=== PATIENT | male | born 1955 | race Caucasian/White ===

== ENCOUNTER 2018-07-09 08:00 | Outpatient (RCR) | payer MEDICAID, SELFPAY | END 2018-07-09 08:05 | disposition home or self-care (01) | LOC: PT 08:00 | PROVIDERS: Visit Provider Orthopaedic Surgery Adult Reconstructive Orthopaedic Surgery | DX: M54.5 Low back pain (principal); M51.36 Other intervertebral disc degeneration, lumbar region | CPT/HCPCS: 97010; 97012; 97014; 97110; 97163; G0283 ==

== ENCOUNTER → 2018-08-25 13:23 | Outpatient (CLI) | payer MEDICAID, SELFPAY ==
[2018-08-25 18:55] LABS: Amphetamine/Metha Screen,Urine Negative ng/mL (<1000); Barbiturates Screen,Urine Negative ng/mL (<200); Benzodiazepines Screen,Urine Negative ng/mL (<200); Cannabinoid Screen,Urine Negative ng/mL (<50); Cocaine Screen,Urine Negative ng/mL (<300); Methadone Screen,Urine Negative ng/mL (<300); Opiate Screen,Urine Negative ng/mL (<300); Phencyclidine Screen,Urine Negative ng/mL (<25)
[2018-08-27 12:34] LABS: Microalbumin, Urine 21.6 ug/mL (Not Estab.)
== END ==
PROVIDERS: Visit Provider Nurse Practitioner Family
DX: E10.9 Type 1 diabetes mellitus without complications (principal); Z79.899 Other long term (current) drug therapy
CPT/HCPCS: 80305; 82043

== ENCOUNTER → 2018-08-30 12:30 | Outpatient (CLI) | payer MEDICAID, SELFPAY ==
--- NOTE | 2018-08-30 12:34 | CA_ITS ---
PROCEDURE: 2-D M-mode and color Doppler study INDICATIONS FOR THE TEST: Chest pain + COPD Heart Murmur Tobacco Smokingex Palpitations Fatigue Syncope Edema Hypertension+Diabetes Mellitus+ Rheumatic Fever SOB+NORRIS Obesity Hyperlipidemia+ Family History HD Additional History abn ekg, pre-op,rbbb PATIENT INFORMATION HEIGHT:70 WEIGHT:271 GENDER: Male B/P:117/69 2-D/M-MODE INTERPRETATION: 2-D MEASUREMENTS OBSERVED VALUES IN CMS Right Ventricular Dimension (RVDd) 2.9 Interventricular Septum (Thickness)(IVsd) 0.8 Left Ventricular Internal Dimensions(LVIDd) 5.9 Left Ventricular Posterior Wall (Thickness)(LVPWd) 0.7 Aortic Root 3.7 Aortic Cusp Separation 2.5 Left Atrial Dimensions (LAD) 3.9 2D 1. Left atrium is mildly enlarged, left ventricle is normal size, there is mild concentric left ventricular hypertrophy, visually estimated ejection fraction of 55% with no regional wall motion abnormality. 2. The right atrium and right ventricle are mildly enlarged with normal contractility. 3. The aortic valve is thickened and gastritis leaflet continue to display mobility. 4. The mitral and tricuspid valve leaflets are minimally thickened 5. The pulmonic valve is poorly visualized. 6. No significant pericardial effusion noted. DOPPLER INTERROGATION: Doppler interrogation of the aortic, mitral and tricuspid valvular presence of mild mitral and tricuspid regurgitation, tricuspid regurgitation jet velocity is inadequate for calculation of the right ventricular systolic pressure, grade 1 diastolic dysfunction seen without tissue Doppler evidence of raised left atrial pressure. CONCLUSION: 1. Mildly enlarged left atrium, normal left ventricular size, mild concentric left ventricular hypertrophy, visually estimated ejection fraction of 55% with no regional wall motion abnormality, grade 1 diastolic dysfunction seen without tissue Doppler evidence of raised left atrial pressure. 2. Mildly enlarged right atrium and right ventricle, contractility of the right ventricle is normal. 3. Mild mitral and tricuspid regurgitation 4. No significant pericardial effusion noted.
== END ==
PROVIDERS: PCP Nurse Practitioner Family; Visit Provider Internal Medicine Cardiovascular Disease
DX: Z01.818 Encounter for other preprocedural examination (principal); R07.9 Chest pain, unspecified; R06.09 Other forms of dyspnea; E10.8 Type 1 diabetes mellitus with unspecified complications; E78.5 Hyperlipidemia, unspecified; I10 Essential (primary) hypertension; K21.9 Gastro-esophageal reflux disease without esophagitis
CPT/HCPCS: 93306

== ENCOUNTER → 2018-08-31 12:12 | Outpatient (CLI) | payer MEDICAID, SELFPAY ==
--- NOTE | 2018-08-31 12:13 | NM_ITS ---
CARDIOLITE SPECT MYOCARDIAL PERFUSION SCAN, REST AND STRESS: EXERCISE STRESS [facility] REVIEW QGS EF AND WALL MOTION EVALUATION: QPS - PERFUSION EVALUATION HISTORY: cp..soa..fatique DOSE: 10.01 mCi technetium 99m mibi intravenously at rest followed by 32.6 mCi technetium 99m mibi following the intravenous ministration of 0.4 mg of Lexiscan. Resting blood pressure is 106/65. Stress blood pressure 103/59. FINDINGS: Ejection fraction is calculated to be 53%. SPECT images reveal decreased activity in the inferior apical wall while rest images reveal uniform myocardial activity. Gated images calculated ejection fraction of 53% with apical hypokinesis IMPRESSION: Reversible ischemia throughout the inferior and apical wall accompanied by regional wall motion abnormality with normal ejection fraction. This is a high-risk abnormal stress test
--- NOTE | 2018-08-31 12:19 | CT_ITS ---
CT chest wo con HISTORY: Chest pain, dyspnea, previous smoker ITS.REASON: ex smoker, dyspnea ORDERING PHYSICIAN: Pedro Dickens MD PATIENT AGE: 62 years COMPARISON: None Technique: Axial images obtained without contrast. Sagittal, and coronal reformatted images are also generated and reviewed. All CT scans at the facility use one or more dose reduction, viz: automated exposure control, ma/kV adjustment per patient size (including targeted exams where dose is matched to indication, i.e. head), or iterative reconstruction technique. FINDINGS: There are scattered small mediastinal nodes measuring up to 1.7 x 1 cm in the precarinal area. Some of the nodes are calcified. Coronary artery calcifications are present. There is minimal thickening of the pericardium anteriorly measuring up to 1 cm. No evidence of aortic aneurysm No lobar consolidation or collapse. There is a calcified granuloma within the left upper lobe. No suspicious pulmonary nodules. No central obstructing lesions. No acute bony findings. Upper abdominal images are unremarkable. There are mild degenerative changes in the thoracic spine. IMPRESSION: 1. No acute findings. 2. Coronary artery calcifications with mild pericardial thickening suggesting small pericardial effusion
--- NOTE | 2018-08-31 14:03 | HMH.ITSHM ---
Current Home Medications as stated by this patient Manuel Christian or phone representative. TAMSULOSIN SITAGLIPTIN ROPINIROLE OMEPRAZOLE NABUMETONE METFORMIN LISINOPRIL INSULIN GLIPIZIDE GABAPENTIN CYCLOBENZAPRINE CANAGLIFLOZIN ATORVASTATIN
== END ==
PROVIDERS: PCP Nurse Practitioner Family; Visit Provider Internal Medicine Cardiovascular Disease
DX: Z01.818 Encounter for other preprocedural examination (principal); R07.9 Chest pain, unspecified; R06.09 Other forms of dyspnea; E10.8 Type 1 diabetes mellitus with unspecified complications; E78.5 Hyperlipidemia, unspecified; I10 Essential (primary) hypertension; K21.9 Gastro-esophageal reflux disease without esophagitis
CPT/HCPCS: 71250; 78452; 93017; A9502; J2785

== ENCOUNTER → 2018-09-27 10:45 | Outpatient (CLI) | payer MEDICAID, SELFPAY | PROVIDERS: PCP Emergency Medicine; Visit Provider Internal Medicine Cardiovascular Disease | DX: G47.9 Sleep disorder, unspecified; R06.83 Snoring; R40.0 Somnolence; E10.8 Type 1 diabetes mellitus with unspecified complications; R06.09 Other forms of dyspnea; G47.33 Obstructive sleep apnea (adult) (pediatric) | CPT/HCPCS: G0399 ==

== ENCOUNTER 2018-09-29 08:18 | Outpatient (RCR) | payer MEDICAID, SELFPAY | END 2018-11-01 12:51 | disposition home or self-care (01) | LOC: PT 08:18 | PROVIDERS: Visit Provider Internal Medicine | DX: Z95.5 Presence of coronary angioplasty implant and graft (principal) | CPT/HCPCS: 93798 ==

== ENCOUNTER → 2018-12-24 06:14 | Outpatient (CLI) | payer OTHER, SELFPAY ==
--- NOTE | 2018-12-24 06:17 | NM_ITS ---
CARDIOLITE SPECT MYOCARDIAL PERFUSION LEXISCAN, REST AND STRESS: History: Coronary artery disease, hypertension, diabetes, hyperlipidemia, tobacco use, family history, chest pain, shortness of breath Procedure: Patient received a 0.4 mg of intravenous Lexiscan, resting heart rate was 66 bpm resting blood pressure 119/78, with Lexiscan maximum heart rate achieved was 73 bpm which is less than 85% of the maximum predicted heart rate and a blood pressure was 109/66. With Lexiscan patient complained of chest pressure. Electrocardiogram: Resting electrocardiogram showed sinus rhythm right bundle branch block, with Lexiscan there is less than 1.[address] segment depression noted from the baseline EKG. The EKG portion of the Lexiscan Myoview is nondiagnostic. Cardiac stress and resting SPECT images: Cardiac stress and resting SPECT images were obtained using technetium 99 Myoview 32.4 mCi at stress and 10.9 mCi at rest. Gated SPECT further analysis of segmental wall motion and calculation of the ejection fraction also done. Cardiac stress and resting SPECT images show a fixed defect involving the inferior and inferior apical wall with reduced contractility in likely secondary to nontransmural myocardial infarction, no significant maryjane-infarct ischemia seen. Computer Derived ejection fraction is 58% with moderate inferior wall hypokinesis. Conclusion: 1. The EKG portion of the Lexiscan Myoview is nondiagnostic. 2. Scintigraphic evidence of nontransmural myocardial scarring involving the inferior and inferior apical wall, with no scintigraphic evidence of reversible ischemia. Computer derived ejection fraction is 58% with moderate inferior wall hypokinesis, right ventricle is normal size and contractility. 3. Abnormal Lexiscan Myoview study.
--- NOTE | 2018-12-24 11:42 | HMH.ITSHM ---
Current Home Medications as stated by this patient Manuel Christian or solar manufacturer's representative. []tamsulosin cyclobenzaprine metformin omeprazole aspirin gabapentin glipizide atorvastatin bisoprolol lisinopril
== END ==
PROVIDERS: PCP Nurse Practitioner Family; Visit Provider Internal Medicine
DX: R07.9 Chest pain, unspecified (principal); R06.09 Other forms of dyspnea; R94.31 Abnormal electrocardiogram [ECG] [EKG]; E11.9 Type 2 diabetes mellitus without complications; I10 Essential (primary) hypertension; Z79.4 Long term (current) use of insulin
CPT/HCPCS: 78452; 93017; A9502; J2785

== ENCOUNTER → 2018-12-29 14:50 | Outpatient (CLI) | payer OTHER, SELFPAY ==
[2018-12-29 15:24] LABS: Basophils % 0.6 % (0.1-2.0); Eosinophils # 0.3 K/mm3 (0.0-0.4); Eosinophils % 3.9 % (0.1-12.0); Hematocrit 47.2 % (42.0-52.0); Hemoglobin 15.1 g/dL (14.1-18.0); Lymphocytes # 1.9 K/mm3 (0.7-4.5); Lymphocytes % 29.2 % (10-50); Mean Corpuscular Volume 87.5 fl (80-94); Monocytes # 0.3 K/mm3 (0.1-1.0); Monocytes % 4.5 % (1.7-9.3); Neutrophils # 4.1 K/mm3 (1.8-7.8); Neutrophils % 61.9 % (37.0-80.0); Platelet Count 279 K/mm3 (142-424); Red Cell Distribution Width 15.1 % (11.5-17.5); White Blood Count 6.6 K/mm3 (4.8-10.8)
[2018-12-29 15:44] LABS: Hemoglobin A1C 7.7 % (0.0-7.0)
[2018-12-29 15:52] LABS: Alanine Aminotransferase 58 U/L (12-78); Albumin Level 3.9 gm/dL (3.4-5.0); Albumin/Globulin Ratio 1.3 (1.1-1.8); Alkaline Phosphatase 65 U/L (46-116); Anion Gap 15.5 mEq/L (5-15); Aspartate Amino Transferase 29 U/L (15-37); Bilirubin,Total 0.7 mg/dL (0.2-1.0); Blood Urea Nitrogen 26 mg/dL (7-18); Calcium 8.6 mg/dL (8.5-10.1); Carbon Dioxide 23 mmol/L (21.0-32.0); Chloride 101 mmol/L (98-107); Cholesterol 103 mg/dL (140-200); Creatinine,Serum 1.34 mg/dL (0.70-1.30); Estimated Glomerular Filt Rate 54 ml/min (>60); GFR (African American) 65 ML/MIN (>60); Glucose 251 mg/dL (74-106); HDL Cholesterol 26 mg/dL (27-67); LDL Cholesterol 28 mg/dL (0-130); Phosphorous 3.9 mg/dL (2.4-4.9); Potassium 4.5 mmoL/L (3.5-5.1); Sodium 135 mmol/L (136-145); Thyroid Stimulating Hormone 1.71 uIU/ml (0.358-3.740); Total Protein,Serum 6.9 gm/dL (6.4-8.2); Triglycerides 244 mg/dL (30-200); VLDL Cholesterol 49 mg/dL (0-40)
[2019-01-02 03:30] LABS: C-Peptide 10.2 ng/mL (1.1-4.4); Thyroid Peroxidase Antibodies <6 IU/mL (0-34); Vitamin D 25 Hydroxy 18.1 ng/mL (30.0-100.0)
[2019-01-02 03:31] LABS: Microalbumin, Urine 23.2 ug/mL (Not Estab.)
== END ==
PROVIDERS: Visit Provider Nurse Practitioner Family
DX: E11.9 Type 2 diabetes mellitus without complications (principal); E78.5 Hyperlipidemia, unspecified; G25.81 Restless legs syndrome; R34 Anuria and oliguria; R53.83 Other fatigue; R68.89 Other general symptoms and signs; E03.9 Hypothyroidism, unspecified; D72.829 Elevated white blood cell count, unspecified; E55.9 Vitamin D deficiency, unspecified
CPT/HCPCS: 80053; 80061; 80069; 82043; 82652; 83036; 84439; 84443; 84681; 85025; 86376; G0103

== ENCOUNTER → 2019-05-10 14:04 | Outpatient (CLI) | payer OTHER, SELFPAY ==
[2019-05-10 14:55] LABS: Amphetamine/Metha Screen,Urine Negative ng/mL (<1000); Barbiturates Screen,Urine Negative ng/mL (<200); Benzodiazepines Screen,Urine Negative ng/mL (<200); Cannabinoid Screen,Urine Negative ng/mL (<50); Cocaine Screen,Urine Negative ng/mL (<300); Methadone Screen,Urine Negative ng/mL (<300); Opiate Screen,Urine Negative ng/mL (<300); Phencyclidine Screen,Urine Negative ng/mL (<25)
== END ==
PROVIDERS: Visit Provider Nurse Practitioner Family
DX: Z79.899 Other long term (current) drug therapy (principal)
CPT/HCPCS: 80305

== ENCOUNTER → 2019-07-06 13:28 | Outpatient (CLI) | payer SELFPAY ==
[2019-07-06 15:45] LABS: Amphetamine/Metha Screen,Urine Negative ng/mL (<1000); Barbiturates Screen,Urine Negative ng/mL (<200); Benzodiazepines Screen,Urine Negative ng/mL (<200); Cannabinoid Screen,Urine Negative ng/mL (<50); Cocaine Screen,Urine Negative ng/mL (<300); Methadone Screen,Urine Negative ng/mL (<300); Opiate Screen,Urine Negative ng/mL (<300); Phencyclidine Screen,Urine Negative ng/mL (<25)
== END ==
PROVIDERS: Visit Provider Nurse Practitioner Family
DX: Z79.899 Other long term (current) drug therapy (principal)
CPT/HCPCS: 80305

== ENCOUNTER → 2019-10-27 16:19 | Outpatient (CLI) | payer OTHER, SELFPAY ==
[2019-10-27 17:03] LABS: Hemoglobin A1C 9.2 % (4.0-6.0)
== END ==
PROVIDERS: Visit Provider Nurse Practitioner Family
DX: E11.9 Type 2 diabetes mellitus without complications (principal); Z79.4 Long term (current) use of insulin
CPT/HCPCS: 83036

== ENCOUNTER → 2020-01-11 11:33 | Outpatient (CLI) | payer OTHER, SELFPAY ==
[2020-01-11 11:57] LABS: Basophils # 0.1 K/mm3 (0-0.2); Basophils % 0.7 % (0.1-2.0); Eosinophils # 0.3 K/mm3 (0.0-0.4); Eosinophils % 3.9 % (0.1-12.0); Hematocrit 42.8 % (42.0-52.0); Hemoglobin 15.1 g/dL (14.1-18.0); Lymphocytes # 2.5 K/mm3 (0.7-4.5); Lymphocytes % 29.4 % (10-50); Mean Corpuscular HGB Conc 35.3 g/dL (31.8-35.4); Mean Corpuscular Hemoglobin 30.5 pg (27.0-31.2); Mean Corpuscular Volume 86.2 fl (80-94); Mean Platelet Volume 7.7 fl (7.4-10.4); Monocytes # 0.4 K/mm3 (0.1-1.0); Monocytes % 4.5 % (1.7-9.3); Neutrophils # 5.2 K/mm3 (1.8-7.8); Neutrophils % 61.6 % (37.0-80.0); Platelet Count 246 K/mm3 (142-424); Red Blood Count 4.97 M/mm3 (4.60-6.20); Red Cell Distribution Width 13.8 % (11.5-17.5); White Blood Count 8.5 K/mm3 (4.8-10.8)
[2020-01-11 12:22] LABS: Hemoglobin A1C 11.3 % (4.0-6.0)
[2020-01-11 12:24] LABS: Chloride 92 mmol/L (98-107); Potassium 4.3 mmoL/L (3.5-5.1); Sodium 135 mmol/L (136-145)
[2020-01-11 12:26] LABS: Bilirubin,Unconjugated 0.5 mg/dL (0.0-1.1); Blood Urea Nitrogen 19 mg/dl (9-20); Estimated Glomerular Filt Rate 75 ml/min (>60); GFR (African American) 91 ML/MIN (>60)
[2020-01-11 12:27] LABS: Alanine Aminotransferase 57 U/L (12-78); Albumin Level 4.5 g/dl (3.5-5.0); Alkaline Phosphatase 75 U/L (38-126); Anion Gap 18.3 mEq/L (5-15); Aspartate Amino Transferase 43 U/L (17-59); Bilirubin,Direct 0.3 mg/dl (0.0-0.4); Bilirubin,Indirect 0.5 mg/dL (0.0-0.9); Bilirubin,Total 0.8 mg/dl (0.2-1.3); Calcium 9.1 mg/dl (8.4-10.2); Carbon Dioxide 29 mmol/L (22.0-30.0); Chol/HDL Ratio 6.6 (1-3.5); Cholesterol 119 mg/dl (140-200); Glucose 295 mg/dl (74-100); HDL Cholesterol 18 mg/dl (40-60)
[2020-01-11 12:38] LABS: Direct LDL Cholesterol 34.29 mg/dL (100-129)
[2020-01-11 12:54] LABS: Triglycerides 566 mg/dl (30-150)
[2020-01-11 12:57] LABS: Prostate Specific Ag Screen 1.8 ng/ml (0.0-4.0)
== END ==
PROVIDERS: Visit Provider Physician Assistant
DX: R07.9 Chest pain, unspecified (principal); R06.09 Other forms of dyspnea; R94.31 Abnormal electrocardiogram [ECG] [EKG]; E10.8 Type 1 diabetes mellitus with unspecified complications; E11.9 Type 2 diabetes mellitus without complications; E78.2 Mixed hyperlipidemia; I10 Essential (primary) hypertension; I25.10 Atherosclerotic heart disease of native coronary artery without angina pectoris; K21.9 Gastro-esophageal reflux disease without esophagitis; G47.33 Obstructive sleep apnea (adult) (pediatric); Z87.891 Personal history of nicotine dependence; Z12.5 Encounter for screening for malignant neoplasm of prostate
CPT/HCPCS: 36415; 80048; 80061; 80076; 83036; 85025; G0103

== ENCOUNTER → 2020-01-26 17:00 | Outpatient (CLI) | payer OTHER, SELFPAY ==
[2020-01-26 19:34] LABS: Hemoglobin A1C 11.4 % (4.0-6.0)
[2020-01-26 23:23] LABS: Microalbumin < 6.000 mg/L (0-16.7)
== END ==
PROVIDERS: Visit Provider Nurse Practitioner Family
DX: E11.9 Type 2 diabetes mellitus without complications (principal); Z79.84 Long term (current) use of oral hypoglycemic drugs
CPT/HCPCS: 82043; 83036

== ENCOUNTER → 2020-05-30 16:50 | Outpatient (CLI) | payer MEDICAID, SELFPAY ==
[2020-05-30 19:01] LABS: Basophils # 0.1 K/mm3 (0-0.2); Basophils % 0.6 % (0.1-2.0); Eosinophils # 0.4 K/mm3 (0.0-0.4); Eosinophils % 4.9 % (0.1-12.0); Hematocrit 49.8 % (42.0-52.0); Hemoglobin 16.6 g/dL (14.1-18.0); Lymphocytes # 2.5 K/mm3 (0.7-4.5); Lymphocytes % 30.8 % (10-50); Mean Corpuscular HGB Conc 33.3 g/dL (31.8-35.4); Mean Corpuscular Hemoglobin 29.3 pg (27.0-31.2); Monocytes # 0.5 K/mm3 (0.1-1.0); Monocytes % 5.7 % (1.7-9.3); Neutrophils # 4.7 K/mm3 (1.8-7.8); Neutrophils % 57.9 % (37.0-80.0); Platelet Count 269 K/mm3 (142-424); Red Blood Count 5.66 M/mm3 (4.60-6.20); Red Cell Distribution Width 13.9 % (11.5-17.5)
[2020-05-30 19:19] LABS: Chloride 99 mmol/L (98-107)
[2020-05-30 19:20] LABS: Potassium 4.8 mmoL/L (3.5-5.1); Sodium 137 mmol/L (136-145)
[2020-05-30 19:22] LABS: Alanine Aminotransferase 55 U/L (12-78); Albumin Level 4.6 g/dl (3.5-5.0); Albumin/Globulin Ratio 1.7 (1.1-1.8); Alkaline Phosphatase 77 U/L (38-126); Anion Gap 14.8 mEq/L (5-15); Aspartate Amino Transferase 49 U/L (17-59); Bilirubin,Total 0.8 mg/dl (0.2-1.3); Blood Urea Nitrogen 13 mg/dl (9-20); Carbon Dioxide 28 mmol/L (22.0-30.0); Cholesterol 129 mg/dl (140-200); Estimated Glomerular Filt Rate 98 ml/min (>60); GFR (African American) 118 ML/MIN (>60); Globulin 2.7 g/dL (1.3-3.2); Total Protein,Serum 7.3 g/dl (6.3-8.2); Triglycerides 308 mg/dl (30-150); VLDL Cholesterol 62 mg/dL (0-40)
[2020-05-30 19:23] LABS: Calcium 9.6 mg/dl (8.4-10.2); Chol/HDL Ratio 5.9 (1-3.5); Glucose 217 mg/dl (74-100); HDL Cholesterol 22 mg/dl (40-60)
[2020-05-30 19:26] LABS: Hemoglobin A1C 9.8 % (4.0-6.0)
[2020-05-30 19:35] LABS: Direct LDL Cholesterol 57.62 mg/dL (100-129)
[2020-05-30 19:40] LABS: T4 (Thyroxine) 7.8 ug/dl (5.53-11.0)
[2020-05-30 19:54] LABS: Thyroid Stimulating Hormone 2.14 uIU/mL (0.465-4.68)
[2020-06-06 03:07] LABS: Testosterone, Total, LC/MS 273.9 ng/dL (264.0-916.0); Testosterone,Free 8.5 pg/mL (6.6-18.1)
== END ==
PROVIDERS: Visit Provider Nurse Practitioner Family
DX: E11.65 Type 2 diabetes mellitus with hyperglycemia (principal); G62.9 Polyneuropathy, unspecified
CPT/HCPCS: 80053; 80061; 83036; 84402; 84403; 84436; 84443; 85025

== ENCOUNTER → 2020-06-15 13:13 | Outpatient (CLI) | payer MEDICAID, SELFPAY ==
[2020-06-16 12:54] LABS: Testosterone,Total 256 ng/dL (264-916)
== END ==
PROVIDERS: Visit Provider Physician Assistant
DX: R53.83 Other fatigue (principal); R79.89 Other specified abnormal findings of blood chemistry
CPT/HCPCS: 84403

== ENCOUNTER → 2020-07-20 14:56 | Outpatient (CLI) | payer MEDICARE, OTHER, SELFPAY ==
[2020-07-20 17:18] VITALS: BMI 40.1
== END ==
PROVIDERS: PCP Nurse Practitioner Family; Visit Provider Urology
DX: Z71.3 Dietary counseling and surveillance (principal); E11.9 Type 2 diabetes mellitus without complications
CPT/HCPCS: 97802

== ENCOUNTER → 2020-08-29 09:21 | Outpatient (CLI) | payer MEDICARE, OTHER, SELFPAY ==
[2020-08-29 10:17] LABS: Chloride 99 mmol/L (98-107); Potassium 4.4 mmoL/L (3.5-5.1); Sodium 137 mmol/L (136-145)
[2020-08-29 10:20] LABS: Anion Gap 15.4 mEq/L (5-15); Blood Urea Nitrogen 22 mg/dl (9-20); Calcium 9.7 mg/dl (8.4-10.2); Carbon Dioxide 27 mmol/L (22.0-30.0); Estimated Glomerular Filt Rate 68 ml/min (>60); GFR (African American) 82 ML/MIN (>60); Glucose 273 mg/dl (74-100)
== END ==
PROVIDERS: Visit Provider Nurse Practitioner Family
DX: E10.8 Type 1 diabetes mellitus with unspecified complications (principal); E78.2 Mixed hyperlipidemia; I10 Essential (primary) hypertension; I25.10 Atherosclerotic heart disease of native coronary artery without angina pectoris; K21.9 Gastro-esophageal reflux disease without esophagitis; R06.09 Other forms of dyspnea; Z79.4 Long term (current) use of insulin
CPT/HCPCS: 36415; 80048

== ENCOUNTER → 2020-11-22 17:23 | Outpatient (CLI) | payer MEDICARE, OTHER, SELFPAY ==
[2020-11-22 17:52] LABS: Basophils # 0.1 K/mm3 (0-0.2); Basophils % 0.7 % (0.1-2.0); Eosinophils # 0.3 K/mm3 (0.0-0.4); Eosinophils % 3.3 % (0.1-12.0); Hematocrit 47.8 % (42.0-52.0); Hemoglobin 16.3 g/dL (14.1-18.0); Lymphocytes # 2.8 K/mm3 (0.7-4.5); Mean Corpuscular Hemoglobin 29.2 pg (27.0-31.2); Mean Corpuscular Volume 85.7 fl (80-94); Mean Platelet Volume 7.8 fl (7.4-10.4); Monocytes # 0.6 K/mm3 (0.1-1.0); Monocytes % 6.2 % (1.7-9.3); Neutrophils # 5.3 K/mm3 (1.8-7.8); Neutrophils % 58.8 % (37.0-80.0); Platelet Count 265 K/mm3 (142-424); Red Blood Count 5.57 M/mm3 (4.60-6.20); Red Cell Distribution Width 13.8 % (11.5-17.5); White Blood Count 9.1 K/mm3 (4.8-10.8)
[2020-11-22 17:57] LABS: Alanine Aminotransferase 53 U/L (12-78); Albumin Level 4.9 g/dl (3.5-5.0); Albumin/Globulin Ratio 1.9 (1.1-1.8); Alkaline Phosphatase 79 U/L (38-126); Anion Gap 18.6 mEq/L (5-15); Aspartate Amino Transferase 39 U/L (17-59); Bilirubin,Total 0.7 mg/dl (0.2-1.3); Blood Urea Nitrogen 24 mg/dl (9-20); Calcium 9.9 mg/dl (8.4-10.2); Carbon Dioxide 24 mmol/L (22.0-30.0); Chloride 99 mmol/L (98-107); Cholesterol 131 mg/dl (140-200); Estimated Glomerular Filt Rate 56 ml/min (>60); GFR (African American) 67 ML/MIN (>60); Globulin 2.6 g/dL (1.3-3.2); Glucose 168 mg/dl (74-100); HDL Cholesterol 22 mg/dl (40-60); Potassium 4.6 mmoL/L (3.5-5.1); Sodium 137 mmol/L (136-145); Total Protein,Serum 7.5 g/dl (6.3-8.2)
[2020-11-22 18:06] LABS: Triglycerides 463 mg/dl (30-150)
[2020-11-22 18:08] LABS: Direct LDL Cholesterol 44.34 mg/dL (100-129)
[2020-11-22 18:13] LABS: Creatinine,Urine Random 117 mg/dL (Not Estab.); Hemoglobin A1C 7.5 % (4.0-6.0)
[2020-11-22 18:15] LABS: Microalbumin/Creatinine Ratio 17.5; T4 (Thyroxine) 7.5 ug/dl (5.53-11.0)
[2020-11-22 18:29] LABS: Thyroid Stimulating Hormone 3.78 uIU/mL (0.465-4.68)
== END ==
PROVIDERS: Visit Provider Nurse Practitioner Family
DX: E11.9 Type 2 diabetes mellitus without complications (principal); Z79.4 Long term (current) use of insulin; Z79.899 Other long term (current) drug therapy
CPT/HCPCS: 80053; 80061; 82043; 82570; 83036; 84436; 84443; 85025

== ENCOUNTER → 2020-12-05 16:51 | Outpatient (CLI) | payer MEDICARE, OTHER, SELFPAY | PROVIDERS: PCP Nurse Practitioner Family; Visit Provider Nurse Practitioner Family | DX: Z20.822 Contact with and (suspected) exposure to COVID-19 (principal) | CPT/HCPCS: U0003 ==

== ENCOUNTER → 2021-01-18 14:46 | Outpatient (POV) | payer MEDICARE, OTHER, SELFPAY | PROVIDERS: Visit Provider Internal Medicine Nephrology | DX: Z00.00 Encounter for general adult medical examination without abnormal findings (principal) ==

== ENCOUNTER → 2021-01-22 15:15 | Outpatient (CLI) | payer MEDICARE, SELFPAY ==
--- NOTE | 2021-01-22 15:42 | XR_ITS ---
PROCEDURE: XR FOOT WT BEARING LT 3V CLINICAL INDICATION: Diabetic COMPARISON: No exams were available for comparison FINDINGS: No fracture or dislocation. No lytic or blastic change. There is normal mineralization. Mild osteoarthritic changes are present in the midfoot. There is a small spur along the plantar surface of the calcaneus with some calcification in the plantar fascia at this region which may indicate posttraumatic change or chronic plantar fasciitis. There is a small calcaneal enthesophyte. Other findings:None. IMPRESSION: Mild degenerative changes, no acute finding Dictated by: Moe Blanco MD 01/22/2021 16:57 Moe Blanco MD in [place] 01/22/2021 16:57
--- NOTE | 2021-01-22 15:42 | XR_ITS ---
PROCEDURE: XR FOOT WT BEARING RT 3V CLINICAL INDICATION: infection of right great hallux lateral border COMPARISON: No exams were available for comparison FINDINGS: No fracture or dislocation. No lytic or blastic change. There is normal mineralization. There are mild osteoarthritic changes at the 1st MTP joint. Small osteophyte is present at the lateral and distal aspect of the 1st metatarsal. There are mild osteoarthritic changes at the tarsal metatarsal junction IMPRESSION: No acute findings. Dictated by: Moe Blanco MD 01/22/2021 16:55 Moe Blanco MD in [place] 01/22/2021 16:55
[2021-01-22 15:44] LABS: Basophils # 0.1 K/mm3 (0-0.2); Basophils % 0.7 % (0.1-2.0); Eosinophils # 0.3 K/mm3 (0.0-0.4); Eosinophils % 2.6 % (0.1-12.0); Hematocrit 42.6 % (42.0-52.0); Hemoglobin 15.1 g/dL (14.1-18.0); Lymphocytes # 2.8 K/mm3 (0.7-4.5); Lymphocytes % 28.7 % (10-50); Mean Corpuscular HGB Conc 35.5 g/dL (31.8-35.4); Mean Corpuscular Hemoglobin 30.1 pg (27.0-31.2); Mean Platelet Volume 7.1 fl (7.4-10.4); Monocytes # 0.5 K/mm3 (0.1-1.0); Monocytes % 5.6 % (1.7-9.3); Neutrophils % 62.4 % (37.0-80.0); Platelet Count 265 K/mm3 (142-424); Red Blood Count 5.02 M/mm3 (4.60-6.20); Red Cell Distribution Width 14.1 % (11.5-17.5); White Blood Count 9.7 K/mm3 (4.8-10.8)
[2021-01-22 16:16] LABS: Erythrocyte Sedimentation Rate 16 mm/hr (0-20)
[2021-01-22 16:25] LABS: Alanine Aminotransferase 55 U/L (12-78); Albumin Level 4.7 g/dl (3.5-5.0); Albumin/Globulin Ratio 1.7 (1.1-1.8); Alkaline Phosphatase 82 U/L (38-126); Anion Gap 20.2 mEq/L (5-15); Aspartate Amino Transferase 35 U/L (17-59); Bilirubin,Total 0.6 mg/dl (0.2-1.3); Blood Urea Nitrogen 33 mg/dl (9-20); Calcium 9.3 mg/dl (8.4-10.2); Carbon Dioxide 26 mmol/L (22.0-30.0); Chloride 97 mmol/L (98-107); Estimated Glomerular Filt Rate 47 ml/min (>60); GFR (African American) 57 ML/MIN (>60); Globulin 2.8 g/dL (1.3-3.2); Glucose 195 mg/dl (74-100); Potassium 5.2 mmoL/L (3.5-5.1); Sodium 138 mmol/L (136-145); Total Protein,Serum 7.5 g/dl (6.3-8.2)
[2021-01-22 16:31] LABS: C-Reactive Protein 6.5 mg/L (0-4)
== END ==
PROVIDERS: Visit Provider Podiatrist
DX: L60.0 Ingrowing nail (principal); E11.8 Type 2 diabetes mellitus with unspecified complications; Z79.4 Long term (current) use of insulin
CPT/HCPCS: 36415; 73630; 80053; 85025; 85651; 86140; 87070; 87186; 87205

== ENCOUNTER 2021-02-13 09:00 | Emergency (ER) | payer MEDICARE, SELFPAY ==
[2021-02-13 09:27] VITALS: BP 122/70; PULSE 74; RESP 18; TEMP 36.7; O2SAT 98; BMI 37.5
--- NOTE | 2021-02-13 09:36 | HMH.EDUTC ---
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 Take tylenol for pain. Follow up with your regular doctor. GO TO THE ER FOR ANY WORSENING SYMPTOMS Follow up with Dr. Howe (podiatry). I put in a referral but you need to call her office and schedule an appointment if you continue to have symptoms after the next couple of days. Prescriptions: Colchicine [Colcrys 0.6mg tablet] 0.6 mg PO DIRECTED #3 tab Transmission Status: Received by [facility] Referrals: Marion Sharp APRN [Primary Care Provider] - France Howe DPM [Staff Physician] - Time of Disposition: 10:41 Medical Decision Making - Medical Records Medical records reviewed: No: I reviewed the patient's medical records. - Carl Inquiry Pt receiving controlled substance: No Vital Signs: 02/13/21 09:27 02/13/21 11:02 Temperature 98.1 F 98.1 F Temperature Source Oral Pulse Rate 74 Pulse Rate [Left] 74 Respiratory Rate 18 18 Blood Pressure 122/70 Blood Pressure [Right Arm] 122/70 Blood Pressure Mean [Right Arm] 87 02 Sat by Pulse Oximetry 98 - Lab Data Lab Results 02/13/21 09:50: WBC 10.8, RBC 5.12, Hgb 15.2, Hct 44.4, MCV 86.8, MCH 29.7, MCHC 34.3, RDW 14.6, Plt Count 280, MPV 7.8, Neut % (Auto) 69.9, Lymph % (Auto) 20.1, [place] % (Auto) 6.9, Eos % (Auto) 2.4, Baso % (Auto) 0.6, Neut # (Auto) 7.6, Lymph # (Auto) 2.2, [place] # (Auto) 0.8, Eos # (Auto) 0.3, Baso # (Auto) 0.1, ESR 19 02/13/21 09:50: Sodium 137, Potassium 4.4, Chloride 97 L, Carbon Dioxide 24, Anion Gap 19.3 H, BUN 23 H, Creatinine 1.30 H, Estimated Creat Clear 96, Estimated GFR 56 L, Est GFR ( Amer) 67, Glucose 387 H, Uric Acid 8.8 H, Calcium 9.0, Total Bilirubin 0.7, AST 33, ALT 51, Alkaline Phosphatase 80, C-Reactive Protein 25.1 H, Total Protein 7.5, Albumin 4.7, Globulin 2.8, Albumin/Globulin Ratio 1.7 Result diagrams: 02/13/21 09:50 02/13/21 09:50 - Radiology Data #1 Image(s): Foot/Toes Image Reviewed: Yes I reviewed the patient's radiology image, Yes I have reviewed radiologist's interpretation Preliminary Findings: Abnormal, No Fracture Seen PROCEDURE: XR FOOT LT MIN 3V CLINICAL INDICATION: left foot pain, no known injury COMPARISON: CR XR FOOT WT BEARING RT 3V from 01/22/2021 CR XR FOOT WT BEARING LT 3V from 01/22/2021 FINDINGS: No fracture or dislocation. No lytic or blastic change. There is normal mineralization. The joint spaces are well-preserved. No significant degenerative/arthritic changes. No erosive changes evident. Other findings:Small calcaneal spur. There is minimal calcification along the plantar fascia just anterior to the calcaneal spur not significantly changed. IMPRESSION: There is calcification along the plantar fascia posteriorly which could indicate chronic plantar fasciitis otherwise negative Dictated by: Moe Blanco MD 02/13/2021 11:12 Moe Blanco MD in [place] 02/13/2021 11:12 [facility] HPI - General Stated complaint: left foot pain Time Seen by Provider: 02/13/21 09:30 - History of Present Illness Provider Complaint: He c/o left foot pain for the past 3 days. He denies any injury. He states that the pain and tenderness is getting worse. Last night it hurt for a blanket to even lay on his foot. He denies any fever/chills/skin redness. - Related Data H
[2021-02-13 10:02] LABS: Basophils # 0.1 K/mm3 (0-0.2); Basophils % 0.6 % (0.1-2.0); Eosinophils # 0.3 K/mm3 (0.0-0.4); Eosinophils % 2.4 % (0.1-12.0); Hematocrit 44.4 % (42.0-52.0); Hemoglobin 15.2 g/dL (14.1-18.0); Lymphocytes # 2.2 K/mm3 (0.7-4.5); Lymphocytes % 20.1 % (10-50); Mean Corpuscular HGB Conc 34.3 g/dL (31.8-35.4); Mean Corpuscular Hemoglobin 29.7 pg (27.0-31.2); Mean Corpuscular Volume 86.8 fl (80-94); Mean Platelet Volume 7.8 fl (7.4-10.4); Monocytes # 0.8 K/mm3 (0.1-1.0); Monocytes % 6.9 % (1.7-9.3); Neutrophils # 7.6 K/mm3 (1.8-7.8); Neutrophils % 69.9 % (37.0-80.0); Platelet Count 280 K/mm3 (142-424); Red Blood Count 5.12 M/mm3 (4.60-6.20); Red Cell Distribution Width 14.6 % (11.5-17.5); White Blood Count 10.8 K/mm3 (4.8-10.8)
[2021-02-13 10:03] LABS: Chloride 97 mmol/L (98-107); Sodium 137 mmol/L (136-145)
[2021-02-13 10:04] LABS: Potassium 4.4 mmoL/L (3.5-5.1)
[2021-02-13 10:09] LABS: Alanine Aminotransferase 51 U/L (12-78); Albumin Level 4.7 g/dl (3.5-5.0); Albumin/Globulin Ratio 1.7 (1.1-1.8); Alkaline Phosphatase 80 U/L (38-126); Anion Gap 19.3 mEq/L (5-15); Aspartate Amino Transferase 33 U/L (17-59); Bilirubin,Total 0.7 mg/dl (0.2-1.3); Blood Urea Nitrogen 23 mg/dl (9-20); Carbon Dioxide 24 mmol/L (22.0-30.0); Creatinine Clearance Estimated 96 mL/min (50-200); Estimated Glomerular Filt Rate 56 ml/min (>60); GFR (African American) 67 ML/MIN (>60); Globulin 2.8 g/dL (1.3-3.2); Glucose 387 mg/dl (74-100); Total Protein,Serum 7.5 g/dl (6.3-8.2); Uric Acid 8.8 mg/dl (3.5-8.5)
[2021-02-13 10:14] LABS: C-Reactive Protein 25.1 mg/L (0-4)
[2021-02-13 10:38] LABS: Erythrocyte Sedimentation Rate 19 mm/hr (0-20)
[2021-02-13 11:02] VITALS: BP 122/70; PULSE 74; RESP 18; TEMP 36.7
== END 2021-02-13 11:02 | disposition home or self-care (01) ==
PROVIDERS: Emergency Provider Nurse Practitioner Family; PCP Nurse Practitioner Family
DX: M79.672 Pain in left foot (principal); E79.0 Hyperuricemia without signs of inflammatory arthritis and tophaceous disease; M10.9 Gout, unspecified; K21.9 Gastro-esophageal reflux disease without esophagitis; E78.5 Hyperlipidemia, unspecified; E03.9 Hypothyroidism, unspecified; I10 Essential (primary) hypertension; Z88.0 Allergy status to penicillin; Z87.891 Personal history of nicotine dependence; E11.65 Type 2 diabetes mellitus with hyperglycemia; Z79.899 Other long term (current) drug therapy
CPT/HCPCS: G0463; 73630; 80053; 84550; 85025; 85651; 86140; 99202

== ENCOUNTER → 2021-02-21 17:48 | Outpatient (CLI) | payer MEDICARE, SELFPAY | PROVIDERS: Visit Provider Nurse Practitioner Family | DX: Z20.822 Contact with and (suspected) exposure to COVID-19 (principal); U07.1 COVID-19 | CPT/HCPCS: U0003 ==

== ENCOUNTER → 2021-05-13 10:11 | Outpatient (CLI) | payer MEDICARE, SELFPAY ==
[2021-05-13 11:36] LABS: Alanine Aminotransferase 43 U/L (12-78); Albumin Level 4.6 g/dl (3.5-5.0); Albumin/Globulin Ratio 1.8 (1.1-1.8); Alkaline Phosphatase 79 U/L (38-126); Anion Gap 14.8 mEq/L (5-15); Aspartate Amino Transferase 41 U/L (17-59); Bilirubin,Total 0.5 mg/dl (0.2-1.3); Blood Urea Nitrogen 18 mg/dl (9-20); Calcium 9.6 mg/dl (8.4-10.2); Carbon Dioxide 30 mmol/L (22.0-30.0); Chloride 94 mmol/L (98-107); Estimated Glomerular Filt Rate 85 ml/min (>60); GFR (African American) 103 ML/MIN (>60); Globulin 2.5 g/dL (1.3-3.2); Glucose 259 mg/dl (74-100); Potassium 4.8 mmoL/L (3.5-5.1); Sodium 134 mmol/L (136-145); Total Protein,Serum 7.1 g/dl (6.3-8.2); Uric Acid 5.6 mg/dl (3.5-8.5)
[2021-05-13 11:49] LABS: Intact Parathyroid Hormone 37.3 pg/mL (7.5-53.5)
[2021-05-13 12:23] LABS: Hemoglobin A1C 8.8 % (4.0-6.0)
== END ==
PROVIDERS: Visit Provider Internal Medicine Nephrology
DX: N17.9 Acute kidney failure, unspecified (principal); N18.30 Chronic kidney disease, stage 3 unspecified; E11.29 Type 2 diabetes mellitus with other diabetic kidney complication; I10 Essential (primary) hypertension; Z79.4 Long term (current) use of insulin
CPT/HCPCS: 36415; 80053; 82306; 83036; 83970; 84550

== ENCOUNTER → 2021-10-23 08:22 | Outpatient (CLI) | payer MEDICARE, SELFPAY ==
[2021-10-23 08:31] LABS: Microscopic, Urine URINE MICROSCOPIC (MICROSCOPIC)
[2021-10-23 09:07] LABS: Hematocrit 41.3 % (42.0-52.0); Mean Corpuscular HGB Conc 33.9 g/dL (31.8-35.4); Mean Corpuscular Hemoglobin 29.5 pg (27.0-31.2); Platelet Count 281 K/mm3 (142-424); Red Blood Count 4.74 M/mm3 (4.60-6.20); Red Cell Distribution Width 13.9 % (11.5-17.5); White Blood Count 10.9 K/mm3 (4.8-10.8)
[2021-10-23 09:10] LABS: Appearance,Urine CLEAR (Clear); Bilirubin,Urine Negative (Negative); Blood, Urine Negative (Negative); Color,Urine YELLOW (Yellow); Glucose,Urine (UA) 2+ (Negative); Ketones,Urine TRACE (Negative); Leukocyte Esterase,Urine Negative (Negative); Nitrate,Urine Negative (Negative); Protein,Urine TRACE (Negative); Specific Gravity, Urine 1.025 (1.005-1.030)
[2021-10-23 09:19] LABS: Creatinine,Urine Random 148 mg/dL (Not Estab.)
[2021-10-23 09:30] LABS: WBC,Urine Occasional #/hpf (0-3)
[2021-10-23 09:31] LABS: Bacteria,Urine Trace /lpf; RBC,Urine Occasional #/hpf (0-3); Squamous Epithelial Cell,Urine Occasional #/hpf (0-5)
[2021-10-23 09:43] LABS: Hemoglobin A1C 8.9 % (4.0-6.0)
[2021-10-23 10:00] LABS: Alanine Aminotransferase 41 U/L (12-78); Albumin Level 4.5 g/dl (3.5-5.0); Alkaline Phosphatase 71 U/L (38-126); Anion Gap 14.4 mEq/L (5-15); Aspartate Amino Transferase 30 U/L (17-59); Bilirubin,Total 0.5 mg/dl (0.2-1.3); Blood Urea Nitrogen 25 mg/dl (9-20); Calcium 9.6 mg/dl (8.4-10.2); Carbon Dioxide 26 mmol/L (22.0-30.0); Chloride 100 mmol/L (98-107); Estimated Glomerular Filt Rate 85 ml/min (>60); GFR (African American) 102 ML/MIN (>60); Globulin 2.2 g/dL (1.3-3.2); Glucose 192 mg/dl (74-100); Potassium 4.4 mmoL/L (3.5-5.1); Sodium 136 mmol/L (136-145); Total Protein,Serum 6.7 g/dl (6.3-8.2); Uric Acid 4.2 mg/dl (3.5-8.5)
[2021-10-23 10:11] LABS: Intact Parathyroid Hormone 62.9 pg/mL (7.5-53.5)
[2021-10-23 10:15] LABS: 25-OH Vitamin D, Total 31.7 ng/mL (30-100)
== END ==
PROVIDERS: PCP Nurse Practitioner Family; Visit Provider Internal Medicine Nephrology
DX: N18.30 Chronic kidney disease, stage 3 unspecified (principal); N17.9 Acute kidney failure, unspecified; E11.29 Type 2 diabetes mellitus with other diabetic kidney complication; I10 Essential (primary) hypertension; Z79.4 Long term (current) use of insulin
CPT/HCPCS: 36415; 80053; 81001; 82306; 82570; 83036; 83970; 84155; 84550; 85014; 85018; 85048; 85049

== ENCOUNTER 2022-03-26 10:11 | Emergency (ER) | payer MEDICARE, SELFPAY ==
--- NOTE | 2022-03-26 10:55 | EXP.UTC ---
Discharge Plan Disposition Patient Disposition: Home, Self-Care Condition: Good Prescriptions Prescriptions: New tamsulosin [Flomax] 0.4 mg capsule 0.8 mg PO DAILY Qty: 14 0RF No Action hydrocodone-acetaminophen 5-325 mg tablet PO DAILY tizanidine 4 mg tablet 4 mg PO ONCE fluticasone propionate 50 mcg/actuation spray,suspension 1 spray INTRANASAL DAILY Qty: 16 2RF levocetirizine 5 mg tablet 5 mg PO montelukast 10 mg tablet 10 mg PO Flovent HFA 110 mcg/actuation HFA aerosol inhaler INHALATION atorvastatin 20 mg tablet See Rx Instructions .ROUTE .COMPLEX Qty: 90 3RF Dose Instruction: TAKE 1 TABLET DAILY Rx Instructions: TAKE 1 TABLET DAILY bisoprolol fumarate 5 mg tablet 5 mg PO DAILY Qty: 90 3RF clopidogrel 75 mg tablet See Rx Instructions .ROUTE .COMPLEX Qty: 90 3RF Dose Instruction: TAKE 1 TABLET EVERY DAY Rx Instructions: TAKE 1 TABLET EVERY DAY furosemide 40 mg tablet See Rx Instructions .ROUTE .COMPLEX Qty: 180 3RF Dose Instruction: TAKE 1 TABLET TWICE DAILY Rx Instructions: TAKE 1 TABLET TWICE DAILY spironolactone 50 mg tablet 50 mg PO DAILY Qty: 90 3RF polyethylene glycol 3350 [Miralax] 17 gram/dose powder 17 g PO DAILY Qty: 238 0RF tamsulosin 0.4 mg capsule PO albuterol sulfate 90 mcg/actuation HFA aerosol inhaler 2 puff INHALATION Q4-6H PRN (Reason: shortness of breath or wheezing) Qty: 8.5 0RF (DME) Blood Glucose Test Strip See Rx Instructions .ROUTE .MEDSUPPLY Qty: 10 12RF Rx Instructions: As directed Lantus Solostar U-100 Insulin 100 unit/mL (3 mL) insulin pen 30 unit SQ DAILY Qty: 15 1RF Novolin 70/30 U-100 Insulin 100 unit/mL (70-30) suspension See Rx Instructions .ROUTE .COMPLEX Qty: 60 3RF Dose Instruction: INJECT 35 UNITS SUBCUTANEOUSLY TWICE DAILY Rx Instructions: INJECT 40 UNITS SUBCUTANEOUSLY TWICE DAILY lisinopril 2.5 mg tablet 2.5 mg PO DAILY Qty: 90 0RF metformin 500 mg tablet See Rx Instructions .ROUTE .COMPLEX Qty: 360 3RF Dose Instruction: TAKE 2 TABLETS TWICE DAILY FOR BLOOD SUGAR Rx Instructions: TAKE 2 TABLETS TWICE DAILY FOR BLOOD SUGAR gabapentin 600 mg tablet 600 mg PO QID 30 Days Qty: 120 2RF Rx Instructions: to make a total of 4 times a x a day aspirin 81 mg tablet,delayed release (DR/EC) 81 mg PO DAILY Qty: 30 11RF (DME) blood-glucose meter [Accu-Chek Lizz Plus Meter] [facility] See Rx Instructions .ROUTE .MEDSUPPLY Qty: 1 0RF Rx Instructions: Check sugar twice daily or as directed pantoprazole [Protonix] 40 mg tablet,delayed release (DR/EC) 40 mg PO DAILY Qty: 90 3RF ropinirole 1 mg tablet See Rx Instructions .ROUTE .COMPLEX Qty: 90 0RF Dose Instruction: TAKE 1 TABLET AT BEDTIME Rx Instructions: TAKE 1 TABLET AT BEDTIME allopurinol 300 mg tablet See Rx Instructions .ROUTE .COMPLEX Qty: 90 0RF Dose Instruction: TAKE 1 TABLET EVERY DAY Rx Instructions: TAKE 1 TABLET EVERY DAY (DME) insulin syringe-needle U-100 [Sure Comfort Ins. Syr. U-100] 0.5 mL 29 gauge x 1/2 syringe See Rx Instructions .ROUTE .COMPLEX Qty: 100 0RF Dose Instruction: USE DIRECTED Rx Instructions: USE DIRECTED Referrals Follow up/Referrals: Miguel Ángel Lucas APRN [Primary Care Provider] - See instructions Activity Restrictions/Add. Instructions Additional Instructions/Restrictions: Take the medications as directed. Take flomax (tamsulosin) 0.8 mg daily. You are already on this medication, but for the next week or so it should be increased to try to help you get relief from your symptoms. Make sure you change positions slowly while you are on this increased dose because this medication can make you dizzy. Follow up with your regular doctor and your surgeon. Your pain medications may need to be changed and
[2022-03-26 10:59] VITALS: BP 158/96; PULSE 79; RESP 18; TEMP 36.8; O2SAT 94; BMI 38.0
[2022-03-26 11:06] LABS: Apearance,Urine Clear (Clear); Color,Urine Yellow (Yellow); PH,Urine 5.5 (5.0-8.5)
[2022-03-26 11:07] LABS: Bilirubin,Urine Negative (Negative); Blood, Urine Negative (Negative); Glucose,Urine (UA) 3+ (Negative); Ketones,Urine Negative (Negative); Protein,Urine Negative (Negative); Specific Gravity, Urine 1.015 (1.005-1.030); UTC Leukocyte Esterase,Urine Negative (Negative); UTC Nitrate,Urine Negative (Negative); Urobilinogen,Urine 0.2 EU/dl (0.2)
[2022-03-26 11:39] VITALS: BP 158/96; PULSE 79; RESP 18; TEMP 36.8; O2SAT 94
== END 2022-03-26 11:40 | disposition home or self-care (01) ==
PROVIDERS: Emergency Provider Nurse Practitioner Family; PCP Nurse Practitioner Family
DX: N40.1 Benign prostatic hyperplasia with lower urinary tract symptoms (principal); R35.0 Frequency of micturition
CPT/HCPCS: 81003; 87086; 99212; G0463

== ENCOUNTER 2022-03-27 17:51 | Emergency (ER) | payer MEDICARE, SELFPAY ==
[2022-03-27 18:23] VITALS: BP 121/77; PULSE 81; RESP 18; TEMP 36.8; O2SAT 96; BMI 36.8
--- NOTE | 2022-03-27 19:06 | HMH.EDGENADL ---
Discharge Plan Disposition Patient Disposition: Home, Self-Care Condition: Good Prescriptions Prescriptions: No Action hydrocodone-acetaminophen 5-325 mg tablet PO DAILY tizanidine 4 mg tablet 4 mg PO ONCE fluticasone propionate 50 mcg/actuation spray,suspension 1 spray INTRANASAL DAILY Qty: 16 2RF levocetirizine 5 mg tablet 5 mg PO montelukast 10 mg tablet 10 mg PO Flovent HFA 110 mcg/actuation HFA aerosol inhaler INHALATION atorvastatin 20 mg tablet See Rx Instructions .ROUTE .COMPLEX Qty: 90 3RF Dose Instruction: TAKE 1 TABLET DAILY Rx Instructions: TAKE 1 TABLET DAILY bisoprolol fumarate 5 mg tablet 5 mg PO DAILY Qty: 90 3RF clopidogrel 75 mg tablet See Rx Instructions .ROUTE .COMPLEX Qty: 90 3RF Dose Instruction: TAKE 1 TABLET EVERY DAY Rx Instructions: TAKE 1 TABLET EVERY DAY furosemide 40 mg tablet See Rx Instructions .ROUTE .COMPLEX Qty: 180 3RF Dose Instruction: TAKE 1 TABLET TWICE DAILY Rx Instructions: TAKE 1 TABLET TWICE DAILY spironolactone 50 mg tablet 50 mg PO DAILY Qty: 90 3RF polyethylene glycol 3350 [Miralax] 17 gram/dose powder 17 g PO DAILY Qty: 238 0RF tamsulosin 0.4 mg capsule PO albuterol sulfate 90 mcg/actuation HFA aerosol inhaler 2 puff INHALATION Q4-6H PRN (Reason: shortness of breath or wheezing) Qty: 8.5 0RF (DME) Blood Glucose Test Strip See Rx Instructions .ROUTE .MEDSUPPLY Qty: 10 12RF Rx Instructions: As directed Lantus Solostar U-100 Insulin 100 unit/mL (3 mL) insulin pen 30 unit SQ DAILY Qty: 15 1RF Novolin 70/30 U-100 Insulin 100 unit/mL (70-30) suspension See Rx Instructions .ROUTE .COMPLEX Qty: 60 3RF Dose Instruction: INJECT 35 UNITS SUBCUTANEOUSLY TWICE DAILY Rx Instructions: INJECT 40 UNITS SUBCUTANEOUSLY TWICE DAILY lisinopril 2.5 mg tablet 2.5 mg PO DAILY Qty: 90 0RF metformin 500 mg tablet See Rx Instructions .ROUTE .COMPLEX Qty: 360 3RF Dose Instruction: TAKE 2 TABLETS TWICE DAILY FOR BLOOD SUGAR Rx Instructions: TAKE 2 TABLETS TWICE DAILY FOR BLOOD SUGAR gabapentin 600 mg tablet 600 mg PO QID 30 Days Qty: 120 2RF Rx Instructions: to make a total of 4 times a x a day aspirin 81 mg tablet,delayed release (DR/EC) 81 mg PO DAILY Qty: 30 11RF (DME) blood-glucose meter [Accu-Chek Lizz Plus Meter] Mis See Rx Instructions .ROUTE .MEDSUPPLY Qty: 1 0RF Rx Instructions: Check sugar twice daily or as directed pantoprazole [Protonix] 40 mg tablet,delayed release (DR/EC) 40 mg PO DAILY Qty: 90 3RF ropinirole 1 mg tablet See Rx Instructions .ROUTE .COMPLEX Qty: 90 0RF Dose Instruction: TAKE 1 TABLET AT BEDTIME Rx Instructions: TAKE 1 TABLET AT BEDTIME allopurinol 300 mg tablet See Rx Instructions .ROUTE .COMPLEX Qty: 90 0RF Dose Instruction: TAKE 1 TABLET EVERY DAY Rx Instructions: TAKE 1 TABLET EVERY DAY (DME) insulin syringe-needle U-100 [Sure Comfort Ins. Syr. U-100] 0.5 mL 29 gauge x 1/2 syringe See Rx Instructions .ROUTE .COMPLEX Qty: 100 0RF Dose Instruction: USE DIRECTED Rx Instructions: USE DIRECTED tamsulosin [Flomax] 0.4 mg capsule 0.8 mg PO DAILY Qty: 14 0RF Referrals Follow up/Referrals: Miguel Ángel Lucas APRN [Primary Care Provider] - See instructions Gen Doll MD [Staff Physician] - See instructions Clinical Impressions Clinical Impression: Acute urinary retention Instructions Patient Instructions: How to Care for Your Cespedes Catheter -- Male, DI for Urinary Retention in Men Discharge ED Provider: Ralph Lloyd Adult HPI General Chief complaint: Urogenital-Male Stated complaint: surg09/26 shoulder can't urinate Time Seen by Provider: 03/27/22 19:06 Mode of Arrival: Ambulatory Source of Information: Patient Limitations: No Limita
[2022-03-27 19:34] VITALS: PULSE 72; O2SAT 86
[2022-03-27 19:45] VITALS: BP 135/76; PULSE 74; RESP 18; TEMP 36.6; O2SAT 94
[2022-03-27 19:56] VITALS: BP 135/76; PULSE 78; RESP 18; TEMP 36.6; O2SAT 98
--- NOTE | 2022-03-27 19:58 | PC.NURSE ---
Pt dc c ins to f/u c pcp. Pt was dc c kramer cathether connected to leg bag. Patient was instructed on removal of kramer catheter if needed, how to empty the kramer and instructions on proper handling. Patients verbalized understanding of kramer care. Advised pt to return to er if shoshana blood was noted. Patient verbalized understanding.
[2022-03-27 20:01] LABS: Microscopic, Urine URINE MICROSCOPIC (MICROSCOPIC)
[2022-03-27 20:24] LABS: Appearance,Urine CLEAR (Clear); Bilirubin,Urine Negative (Negative); Blood, Urine TRACE-I (Negative); Color,Urine YELLOW (Yellow); Glucose,Urine (UA) 3+ (Negative); Ketones,Urine Negative (Negative); Leukocyte Esterase,Urine Negative (Negative); Nitrate,Urine Negative (Negative); Protein,Urine Negative (Negative); Urobilinogen,Urine 0.2 EU/dl (0.2)
[2022-03-27 20:47] LABS: Bacteria,Urine Trace /lpf
== END 2022-03-27 20:01 | disposition home or self-care (01) ==
PROVIDERS: Emergency Provider Emergency Medicine; PCP Nurse Practitioner Family
DX: R33.9 Retention of urine, unspecified (principal); Z79.899 Other long term (current) drug therapy; Z88.0 Allergy status to penicillin; E10.9 Type 1 diabetes mellitus without complications; K21.9 Gastro-esophageal reflux disease without esophagitis; E78.5 Hyperlipidemia, unspecified; I10 Essential (primary) hypertension; I45.10 Unspecified right bundle-branch block
CPT/HCPCS: 51702; 81001; 99283

== ENCOUNTER → 2022-05-05 11:15 | Outpatient (CLI) | payer MEDICARE, SELFPAY ==
[2022-05-05 11:32] LABS: Microscopic, Urine URINE MICROSCOPIC (MICROSCOPIC)
[2022-05-05 11:56] LABS: Appearance,Urine CLEAR (Clear); Bilirubin,Urine Negative (Negative); Blood, Urine Negative (Negative); Color,Urine YELLOW (Yellow); Glucose,Urine (UA) Negative (Negative); Ketones,Urine Negative (Negative); Leukocyte Esterase,Urine Negative (Negative); Nitrate,Urine Negative (Negative); Protein,Urine Negative (Negative); Specific Gravity, Urine 1.015 (1.005-1.030); Urobilinogen,Urine 0.2 EU/dl (0.2)
[2022-05-05 11:58] LABS: Basophils # 0.1 K/mm3 (0-0.2); Basophils % 1.3 % (0.1-2.0); Eosinophils # 0.3 K/mm3 (0.0-0.4); Eosinophils % 4.6 % (0.1-12.0); Hematocrit 40.8 % (42.0-52.0); Hemoglobin 13.4 g/dL (14.1-18.0); Lymphocytes # 2.2 K/mm3 (0.7-4.5); Lymphocytes % 34.5 % (10-50); Mean Corpuscular HGB Conc 32.9 g/dL (31.8-35.4); Mean Corpuscular Hemoglobin 29.5 pg (27.0-31.2); Mean Corpuscular Volume 89.7 fl (80-94); Monocytes # 0.4 K/mm3 (0.1-1.0); Monocytes % 5.7 % (1.7-9.3); Neutrophils # 3.5 K/mm3 (1.8-7.8); Neutrophils % 53.8 % (37.0-80.0); Platelet Count 260 K/mm3 (142-424); Red Blood Count 4.55 M/mm3 (4.60-6.20); Red Cell Distribution Width 14.2 % (11.5-17.5); White Blood Count 6.5 K/mm3 (4.8-10.8)
[2022-05-05 12:06] LABS: Creatinine,Urine Random 56 mg/dL (Not Estab.)
[2022-05-05 12:25] LABS: Squamous Epithelial Cell,Urine Occasional #/hpf (0-5)
[2022-05-05 12:29] LABS: Uric Acid 5.5 mg/dl (3.5-8.5)
[2022-05-05 12:39] LABS: Intact Parathyroid Hormone 35.4 pg/mL (7.5-53.5)
[2022-05-05 12:45] LABS: 25-OH Vitamin D, Total 41.8 ng/mL (30-100)
[2022-05-05 12:57] LABS: Hemoglobin A1C 8.5 % (4.0-6.0)
[2022-05-05 12:59] LABS: Prostate Specific Ag Screen 1.5 ng/ml (0.0-4.0)
[2022-05-05 16:36] LABS: Alanine Aminotransferase 43 U/L (12-78); Albumin Level 4.6 g/dl (3.5-5.0); Albumin/Globulin Ratio 2.1 (1.1-1.8); Alkaline Phosphatase 85 U/L (38-126); Anion Gap 18.4 mEq/L (5-15); Aspartate Amino Transferase 40 U/L (17-59); Bilirubin,Total 0.5 mg/dl (0.2-1.3); Blood Urea Nitrogen 19 mg/dl (9-20); Calcium 9.6 mg/dl (8.4-10.2); Carbon Dioxide 29 mmol/L (22.0-30.0); Chloride 95 mmol/L (98-107); Chol/HDL Ratio 5.5 (1-3.5); Cholesterol 122 mg/dl (140-200); Estimated Glomerular Filt Rate 75 ml/min (>60); GFR (African American) 91 ML/MIN (>60); Globulin 2.2 g/dL (1.3-3.2); Glucose 168 mg/dl (74-100); HDL Cholesterol 22 mg/dl (40-60); Potassium 4.4 mmoL/L (3.5-5.1); Sodium 138 mmol/L (136-145); Total Protein,Serum 6.8 g/dl (6.3-8.2); Triglycerides 344 mg/dl (30-150); VLDL Cholesterol 69 mg/dL (0-40)
[2022-05-05 16:46] LABS: Direct LDL Cholesterol 46.35 mg/dL (100-129)
[2022-05-05 17:06] LABS: Thyroid Stimulating Hormone 1.63 uIU/mL (0.465-4.68)
== END ==
PROVIDERS: PCP Nurse Practitioner Family; Referring Provider Urology; Visit Provider Internal Medicine Nephrology
DX: E11.69 Type 2 diabetes mellitus with other specified complication; N18.30 Chronic kidney disease, stage 3 unspecified; N17.9 Acute kidney failure, unspecified; I10 Essential (primary) hypertension; Z12.5 Encounter for screening for malignant neoplasm of prostate; Z79.4 Long term (current) use of insulin
CPT/HCPCS: 36415; 80053; 80061; 81001; 82043; 82306; 82570; 83036; 83970; 84155; 84443; 84550; 85025; G0103

== ENCOUNTER → 2022-10-01 23:36 | Outpatient (CLI) | payer MEDICARE, SELFPAY ==
[2022-10-01 20:07] LABS: Amphetamine/Metha Screen,Urine Negative ng/ml (<1000)
[2022-10-01 20:09] LABS: Barbiturates Screen,Urine Negative ng/ml (<200); Benzodiazepines Screen,Urine Negative ng/ml (<200)
[2022-10-01 20:10] LABS: Cannabinoid Screen,Urine Negative ng/ml (<50)
[2022-10-01 20:11] LABS: Cocaine Screen,Urine Negative ng/ml (<300); Methadone Screen,Urine Negative ng/ml (<300)
[2022-10-01 20:12] LABS: Opiate Screen,Urine Negative ng/ml (<300)
[2022-10-01 20:13] LABS: Phencyclidine Screen,Urine Negative ng/ml (<25)
== END ==
PROVIDERS: PCP Nurse Practitioner Family; Visit Provider Nurse Practitioner Family
DX: R40.0 Somnolence (principal); Z79.899 Other long term (current) drug therapy
CPT/HCPCS: 80305

== ENCOUNTER → 2022-10-03 07:46 | Outpatient (CLI) | payer MEDICARE, SELFPAY ==
[2022-10-03 08:18] LABS: Basophils # 0.1 K/mm3 (0-0.2); Basophils % 0.6 % (0.1-2.0); Eosinophils # 0.3 K/mm3 (0.0-0.4); Eosinophils % 3.6 % (0.1-12.0); Hemoglobin 13.6 g/dL (14.1-18.0); Lymphocytes # 3.3 K/mm3 (0.7-4.5); Lymphocytes % 40.6 % (10-50); Mean Corpuscular HGB Conc 32.4 g/dL (31.8-35.4); Mean Corpuscular Volume 89.6 fl (80-94); Monocytes # 0.5 K/mm3 (0.1-1.0); Monocytes % 6.8 % (1.7-9.3); Neutrophils # 3.9 K/mm3 (1.8-7.8); Neutrophils % 48.4 % (37.0-80.0); Platelet Count 243 K/mm3 (142-424); Red Blood Count 4.68 M/mm3 (4.60-6.20); Red Cell Distribution Width 14.5 % (11.5-17.5)
[2022-10-03 08:28] LABS: Chloride 100 mmol/L (98-107); Potassium 4.7 mmoL/L (3.5-5.1); Sodium 138 mmol/L (136-145)
[2022-10-03 08:30] LABS: Alanine Aminotransferase 35 U/L (12-78); Aspartate Amino Transferase 32 U/L (17-59); Blood Urea Nitrogen 17 mg/dl (9-20); Estimated Glomerular Filt Rate 75 ml/min (>60); GFR (African American) 90 ML/MIN (>60)
[2022-10-03 08:31] LABS: Albumin Level 4.3 g/dl (3.5-5.0); Alkaline Phosphatase 65 U/L (38-126); Anion Gap 13.7 mEq/L (5-15); Bilirubin,Total 0.5 mg/dl (0.2-1.3); Calcium 9.2 mg/dl (8.4-10.2); Carbon Dioxide 29 mmol/L (22.0-30.0); Chol/HDL Ratio 3.2 (1-3.5); Cholesterol 74 mg/dl (140-200); Globulin 2.2 g/dL (1.3-3.2); Glucose 115 mg/dl (74-100); HDL Cholesterol 23 mg/dl (40-60); Total Protein,Serum 6.5 g/dl (6.3-8.2); Triglycerides 178 mg/dl (30-150); VLDL Cholesterol 36 mg/dL (0-40)
[2022-10-03 08:41] LABS: Creatinine,Urine Random 88 mg/dL (Not Estab.)
[2022-10-03 08:42] LABS: Direct LDL Cholesterol 33.16 mg/dL (100-129)
[2022-10-03 09:02] LABS: Thyroid Stimulating Hormone 5.52 uIU/mL (0.465-4.68)
[2022-10-03 09:34] LABS: 25-OH Vitamin D, Total 42.9 ng/mL (30-100)
[2022-10-03 10:02] LABS: Hemoglobin A1C 13.4 % (4.0-6.0)
== END ==
PROVIDERS: PCP Nurse Practitioner Family; Visit Provider Nurse Practitioner Family
DX: Z68.37 Body mass index [BMI] 37.0-37.9, adult; E11.9 Type 2 diabetes mellitus without complications; E66.9 Obesity, unspecified; Z79.4 Long term (current) use of insulin; Z79.899 Other long term (current) drug therapy
CPT/HCPCS: 36415; 80053; 80061; 82043; 82306; 82570; 83036; 84443; 85025

== ENCOUNTER 2022-10-22 10:44 | Emergency (ER) | payer MEDICARE, SELFPAY ==
[2022-10-22 10:45] VITALS: BP 106/57; PULSE 67; RESP 17; TEMP 36.6; O2SAT 100; BMI 37.8
[2022-10-22 11:14] LABS: Microscopic, Urine URINE MICROSCOPIC (MICROSCOPIC)
[2022-10-22 11:19] LABS: Appearance,Urine TURBID (Clear); Bilirubin,Urine Negative (Negative); Blood, Urine 3+ (Negative); Color,Urine RED (Yellow); Glucose,Urine (UA) Negative (Negative); Ketones,Urine Negative (Negative); Leukocyte Esterase,Urine Negative (Negative); Nitrate,Urine Negative (Negative); PH,Urine 5.5 (5.0-8.5); Protein,Urine 1+ (Negative); Urobilinogen,Urine 0.2 EU/dl (0.2)
[2022-10-22 11:33] LABS: Bacteria,Urine Trace /lpf; RBC,Urine TNTC #/hpf (0-3); Squamous Epithelial Cell,Urine Occasional #/hpf (0-5); WBC,Urine Occasional #/hpf (0-3)
--- NOTE | 2022-10-22 11:50 | CT_ITS ---
FINAL REPORT TECHNIQUE: Axial CT images of the abdomen and pelvis were obtained without intravenous contrast. Coronal reformatted images were also obtained.This study was performed with techniques to keep radiation doses as low as reasonably achievable (ALARA). Individualized dose reduction techniques using automated exposure control or adjustment of mA and/or kV according to the patient's size were employed. CLINICAL HISTORY: Stone protocol COMPARISON: none FINDINGS: Abdomen: The lung bases are clear. There is no evidence of renal stone or hydronephrosis. There is mild fatty infiltration of the liver. Splenomegaly with the spleen measuring 15 cm in length. The pancreas is unremarkable. No mass or adenopathy is seen. There are mild vascular calcifications. Pelvis: Images of the pelvis reveal no evidence of ureteral dilation or ureteral stone. There is mild nonspecific bladder wall thickening, likely inflammatory. The appendix is normal. IMPRESSION: No renal or ureteral stone, or hydronephrosis. Fatty liver. Splenomegaly. Nonspecific bladder wall thickening, likely inflammatory. Reviewed, Interpreted and Dictated by Juan Manuel Gibson III, MD Transcribed by Saumya Morgan Authenticated and [facility]
[2022-10-22 11:58] LABS: Chloride 98 mmol/L (98-107)
[2022-10-22 11:59] LABS: Potassium 4.9 mmoL/L (3.5-5.1); Sodium 133 mmol/L (136-145)
[2022-10-22 12:01] LABS: Alanine Aminotransferase 41 U/L (12-78); Alkaline Phosphatase 74 U/L (38-126); Aspartate Amino Transferase 38 U/L (17-59); Bilirubin,Total 0.4 mg/dl (0.2-1.3); Blood Urea Nitrogen 21 mg/dl (9-20); Creatinine Clearance Estimated 123 mL/min (50-200); Estimated Glomerular Filt Rate 75 ml/min (>60); GFR (African American) 90 ML/MIN (>60)
[2022-10-22 12:02] LABS: Albumin Level 4.3 g/dl (3.5-5.0); Albumin/Globulin Ratio 1.7 (1.1-1.8); Anion Gap 14.9 mEq/L (5-15); Calcium 8.9 mg/dl (8.4-10.2); Carbon Dioxide 25 mmol/L (22.0-30.0); Globulin 2.6 g/dL (1.3-3.2); Glucose 219 mg/dl (74-100); Total Protein,Serum 6.9 g/dl (6.3-8.2)
--- NOTE | 2022-10-22 12:02 | HMH.EDUROGM ---
Discharge Plan Disposition Patient Disposition: Home, Self-Care Chief Complaint: Urogenital-Male Prescriptions Prescriptions: No Action tizanidine 4 mg tablet 4 mg PO ONCE fluticasone propionate 50 mcg/actuation spray,suspension 1 spray INTRANASAL DAILY Qty: 16 2RF (DME) insulin syringe-needle U-100 [Sure Comfort Ins. Syr. U-100] 0.5 mL 29 gauge x 1/2 syringe See Rx Instructions .ROUTE .COMPLEX Qty: 100 1RF Dose Instruction: USE DIRECTED Rx Instructions: USE DIRECTED tamsulosin [Flomax] 0.4 mg capsule 0.4 mg PO DAILY Qty: 90 1RF ropinirole 1 mg tablet See Rx Instructions .ROUTE .COMPLEX Qty: 180 1RF Dose Instruction: TAKE 2 TABLETS EVERY NIGHT AT BEDTIME Rx Instructions: TAKE 2 TABLETS EVERY NIGHT AT BEDTIME polyethylene glycol 3350 [Miralax] 17 gram/dose powder 17 g PO DAILY Qty: 238 0RF levocetirizine 5 mg tablet 5 mg PO montelukast 10 mg tablet 10 mg PO Flovent HFA 110 mcg/actuation HFA aerosol inhaler INHALATION (DME) Blood Glucose Test Strip See Rx Instructions .ROUTE .MEDSUPPLY Qty: 10 12RF Rx Instructions: As directed meloxicam 7.5 mg tablet 7.5 mg PO DAILY oxycodone-acetaminophen 5-325 mg tablet 1 tab PO ONCE furosemide 40 mg tablet 40 mg PO DAILY Qty: 90 3RF bisoprolol fumarate 5 mg tablet 5 mg PO DAILY Qty: 90 3RF atorvastatin 20 mg tablet See Rx Instructions .ROUTE .COMPLEX Qty: 90 3RF Dose Instruction: TAKE 1 TABLET DAILY Rx Instructions: TAKE 1 TABLET DAILY lisinopril 2.5 mg tablet 2.5 mg PO DAILY Qty: 90 3RF spironolactone 50 mg tablet 50 mg PO DAILY Qty: 90 3RF pantoprazole [Protonix] 40 mg tablet,delayed release (DR/EC) 40 mg PO DAILY Qty: 90 3RF insulin glargine [Lantus Solostar U-100 Insulin] 100 unit/mL (3 mL) insulin pen 40 unit SQ DAILY Qty: 15 3RF escitalopram oxalate [Lexapro] 10 mg tablet 10 mg PO DAILY Qty: 30 2RF gabapentin 600 mg tablet See Rx Instructions .ROUTE .COMPLEX Qty: 120 2RF Dose Instruction: TAKE 1 TABLET BY MOUTH FOUR TIMES DAILY MAY CAUSE DROWSINESS Rx Instructions: TAKE 1 TABLET BY MOUTH FOUR TIMES DAILY MAY CAUSE DROWSINESS cyclobenzaprine 10 mg tablet 10 mg PO TID PRN (Reason: muscle spasm) Qty: 60 0RF triamcinolone acetonide 0.1 % cream 1 applic topical BID Qty: 30 0RF aspirin 81 mg tablet,delayed release (DR/EC) 81 mg PO DAILY Qty: 30 11RF (DME) blood-glucose meter [Accu-Chek Lizz Plus Meter] [facility] [place] Rx Instructions .ROUTE .MEDSUPPLY Qty: 1 0RF Rx Instructions: Check sugar twice daily or as directed allopurinol 300 mg tablet See Rx Instructions .ROUTE .COMPLEX Qty: 90 0RF Dose Instruction: TAKE 1 TABLET EVERY DAY Rx Instructions: TAKE 1 TABLET EVERY DAY clopidogrel 75 mg tablet See Rx Instructions .ROUTE .COMPLEX Qty: 90 3RF Dose Instruction: TAKE 1 TABLET EVERY DAY Rx Instructions: TAKE 1 TABLET EVERY DAY metformin 500 mg tablet See Rx Instructions .ROUTE .COMPLEX Qty: 360 0RF Dose Instruction: TAKE 2 TABLETS TWICE DAILY FOR BLOOD SUGAR Rx Instructions: TAKE 2 TABLETS TWICE DAILY FOR BLOOD SUGAR Novolin 70/30 U-100 Insulin 100 unit/mL (70-30) suspension See Rx Instructions .ROUTE .COMPLEX Qty: 10 0RF Dose Instruction: INJECT 65 UNITS UNDER THE SKIN EVERY DAY Rx Instructions: INJECT 65 UNITS UNDER THE SKIN EVERY DAY Referrals Follow up/Referrals: Miguel Ángel Lucas APRN [Primary Care Provider] - See instructions Clinical Impressions Clinical Impression: Hematuria Instructions Patient Instructions: DI for Urinary Tract Infection (UTI), DI for Urinary Tract Infection in Children Discharge ED Provider: Sergio Mcnulty Male Urogenital HPI General Chief complaint: Urogenital-Male Stated complaint: Blood in urine Time Seen by Provider:
--- NOTE | 2022-10-22 12:13 | PC.NURSE ---
pt returned from radiology at this time
[2022-10-22 12:23] LABS: Activated Partial Thrombo Time 27.9 seconds (22.8-30.6); INR 0.97 (0.9-1.1); Prothrombin Time 10.5 seconds (10.1-12.5)
[2022-10-22 12:35] LABS: Basophils % 0.4 % (0.1-2.0); Eosinophils # 0.3 K/mm3 (0.0-0.4); Eosinophils % 3.2 % (0.1-12.0); Hematocrit 42.5 % (42.0-52.0); Hemoglobin 14.1 g/dL (14.1-18.0); Lymphocytes # 2.9 K/mm3 (0.7-4.5); Lymphocytes % 32.5 % (10-50); Mean Corpuscular HGB Conc 33.2 g/dL (31.8-35.4); Mean Corpuscular Hemoglobin 29.2 pg (27.0-31.2); Mean Platelet Volume 7.5 fl (7.4-10.4); Monocytes # 0.4 K/mm3 (0.1-1.0); Monocytes % 4.4 % (1.7-9.3); Neutrophils # 5.2 K/mm3 (1.8-7.8); Neutrophils % 59.5 % (37.0-80.0); Platelet Count 256 K/mm3 (142-424); Red Blood Count 4.83 M/mm3 (4.60-6.20); Red Cell Distribution Width 14.1 % (11.5-17.5); White Blood Count 8.8 K/mm3 (4.8-10.8)
--- NOTE | 2022-10-22 13:38 | PC.NURSE ---
contacted rad to check on status of ct result, rad staff sent over preliminary report, report given to TANNA VAUGHN
[2022-10-22 14:52] VITALS: BP 106/57; PULSE 67; RESP 17; TEMP 36.6; O2SAT 100
== END 2022-10-22 14:55 | disposition home or self-care (01) ==
PROVIDERS: Emergency Medicine; Emergency Provider Emergency Medicine; PCP Nurse Practitioner Family
DX: N39.0 Urinary tract infection, site not specified (principal); R31.9 Hematuria, unspecified
CPT/HCPCS: 74176; 80053; 81001; 85025; 85610; 85730; 99284; 99285

== ENCOUNTER → 2022-11-26 10:21 | Outpatient (CLI) | payer MEDICARE, SELFPAY ==
[2022-11-26 10:42] LABS: Microscopic, Urine URINE MICROSCOPIC (MICROSCOPIC)
[2022-11-26 10:58] LABS: Appearance,Urine CLEAR (Clear); Bilirubin,Urine Negative (Negative); Blood, Urine Negative (Negative); Color,Urine YELLOW (Yellow); Glucose,Urine (UA) 3+ (Negative); Ketones,Urine Negative (Negative); Leukocyte Esterase,Urine Negative (Negative); Nitrate,Urine Negative (Negative); PH,Urine 6.5 (5.0-8.5); Protein,Urine Negative (Negative); Specific Gravity, Urine 1.015 (1.005-1.030); Urobilinogen,Urine 0.2 EU/dl (0.2)
[2022-11-26 11:05] LABS: Hematocrit 41.9 % (42.0-52.0); Hemoglobin 13.6 g/dL (14.1-18.0); Mean Corpuscular HGB Conc 32.5 g/dL (31.8-35.4); Mean Corpuscular Hemoglobin 29.1 pg (27.0-31.2); Mean Corpuscular Volume 89.8 fl (80-94); Platelet Count 280 K/mm3 (142-424); Red Blood Count 4.67 M/mm3 (4.60-6.20); Red Cell Distribution Width 14.1 % (11.5-17.5); White Blood Count 7.3 K/mm3 (4.8-10.8)
[2022-11-26 11:20] LABS: Bacteria,Urine Trace /lpf; Squamous Epithelial Cell,Urine Occasional #/hpf (0-5); WBC,Urine Occasional #/hpf (0-3)
[2022-11-26 11:24] LABS: Alanine Aminotransferase 49 U/L (12-78); Albumin Level 4.1 g/dl (3.5-5.0); Albumin/Globulin Ratio 1.9 (1.1-1.8); Alkaline Phosphatase 84 U/L (38-126); Anion Gap 14.2 mEq/L (5-15); Aspartate Amino Transferase 49 U/L (17-59); Bilirubin,Total 0.4 mg/dl (0.2-1.3); Blood Urea Nitrogen 18 mg/dl (9-20); Calcium 8.9 mg/dl (8.4-10.2); Carbon Dioxide 30 mmol/L (22.0-30.0); Chloride 95 mmol/L (98-107); Estimated Glomerular Filt Rate 84 ml/min (>60); GFR (African American) 102 ML/MIN (>60); Globulin 2.2 g/dL (1.3-3.2); Glucose 321 mg/dl (74-100); Potassium 5.2 mmoL/L (3.5-5.1); Sodium 134 mmol/L (136-145); Total Protein,Serum 6.3 g/dl (6.3-8.2); Uric Acid 3.5 mg/dl (3.5-8.5)
[2022-11-26 11:25] LABS: Alanine Aminotransferase 50 U/L (12-78); Albumin Level 4.2 g/dl (3.5-5.0); Alkaline Phosphatase 87 U/L (38-126); Aspartate Amino Transferase 49 U/L (17-59); Bilirubin,Indirect 0.4 mg/dL (0.0-0.9); Bilirubin,Total 0.4 mg/dl (0.2-1.3); Bilirubin,Unconjugated 0.6 mg/dL (0.0-1.1); Chol/HDL Ratio 3.6 (1-3.5); Cholesterol 89 mg/dl (140-200); HDL Cholesterol 25 mg/dl (40-60); Total Protein,Serum 6.4 g/dl (6.3-8.2); Triglycerides 273 mg/dl (30-150); VLDL Cholesterol 55 mg/dL (0-40)
[2022-11-26 11:32] LABS: Hemoglobin A1C 8.7 % (4.0-6.0)
[2022-11-26 11:36] LABS: Direct LDL Cholesterol 32.23 mg/dL (100-129)
[2022-11-26 11:42] LABS: 25-OH Vitamin D, Total 40.9 ng/mL (30-100)
[2022-11-26 11:56] LABS: Prostate Specific Ag Screen 1.4 ng/ml (0.0-4.0)
[2022-12-14 22:27] LABS: PTH Related Peptide < 2.0
== END ==
PROVIDERS: PCP Internal Medicine Nephrology; Visit Provider Nurse Practitioner Family
DX: E11.69 Type 2 diabetes mellitus with other specified complication (principal); E78.2 Mixed hyperlipidemia; G47.33 Obstructive sleep apnea (adult) (pediatric); I10 Essential (primary) hypertension; I25.10 Atherosclerotic heart disease of native coronary artery without angina pectoris; K21.9 Gastro-esophageal reflux disease without esophagitis; R06.09 Other forms of dyspnea; R53.83 Other fatigue; R94.31 Abnormal electrocardiogram [ECG] [EKG]; N17.9 Acute kidney failure, unspecified; E11.29 Type 2 diabetes mellitus with other diabetic kidney complication; Z12.5 Encounter for screening for malignant neoplasm of prostate; N18.30 Chronic kidney disease, stage 3 unspecified; Z79.4 Long term (current) use of insulin
CPT/HCPCS: 36415; 80053; 80061; 80076; 81001; 82306; 82397; 83036; 84550; 85014; 85018; 85048; 85049; G0103

== ENCOUNTER → 2022-12-10 06:19 | Outpatient (CLI) | payer MEDICARE, SELFPAY ==
--- NOTE | 2022-12-10 06:23 | NM_ITS ---
APPROVED REPORT Exam: Nuclear Stress Test Indication: soa..fatigue..hypertension..high cholesterol..family hx Patient Location: Outpatient Stress Tech: Eva Dallas [place] Tech:AUGUST Nguyen RT(R)(N) Ht: 5 ft 11 in Wt: 264 lbs HR: 61 bpm BP: 126/75 mmHg BSA: 2.37 m2 TID: 1.67 BMI: 36.8 History: soa..fatigue..hypertension..high cholesterol..family hx Procedure: Patient received 0.4 mg of intravenous Lexiscan, resting heart rate 61 bpm, resting blood pressure 126/75 mmHg, with Lexiscan maximum heart rate achieved was 63 bpm which is 85 % of the maximum predicted heart rate and blood pressure was 126/75 mmHg. With Lexiscan, patient denied any complaint of chest pain. Cardiac Stress and Resting SPECT Images: Cardiac Stress and Resting SPECT images were obtained using technetium 99m Myoview 32.4 mCi stress and 10.87 mCi at rest. Resting and stress imaging in both supine and prone positions demonstrate a large sized, moderate, partially reversible defect in the basal to mid inferior and inferoseptal wall. There is also a fixed perfusion defect in the apical LV wall. There is marked increase in the transient ischemic dilatation ratio (TID 1.67) suggestive of balanced ischemia or multivessel disease. Gated imaging demonstrates a low normal global LV systolic function. There is moderate hypokinesis in the inferior and inferoseptal LV wall. LVEF is calculated at 53%. Conclusion: Large sized, moderate, partially reversible defect in the basal to mid inferior and inferoseptal wall. There is also a fixed perfusion defect in the apical LV wall. Findings are suggestive of prior infarct with regions of reversible ischemia. There is marked increase in the transient ischemic dilatation ratio (TID 1.67) suggestive of balanced ischemia or multivessel disease. Gated imaging demonstrates a low normal global LV systolic function. There is moderate hypokinesis in the inferior and inferoseptal LV wall. LVEF is calculated at 53%. Electronically signed by : Mylene Mathews, 12/11/2022 01:11:56
--- NOTE | 2022-12-10 09:19 | CA_ITS ---
APPROVED REPORT Exam: Pharmacologic Technologist: Eva Mosquera, Ht: 5 ft 10 in Wt: 262 lbs BSA: 2.34 m2 HR: 59 bpm BP: 126/75 mmHg Rhythm: NSR Medical History Medications: Lisinopril,,,,, Aspirin,,,,, Metformin,,,,, Gabapentin,,,,, Lexapro,,,,, Flomax,,,,, Atorvastatin,,,,, Flonase,,,,, Ropinirole,,,,, MeLOXICAM,,,,, Protonix,,,,, CloPIdogrel,,,,, Stress Test Details Test: LEXISCAN Reason for pharmacologic stress test: physical limitation. HR Resting HR: 61 bpm Max Heart Rate (APMHR): 154 bpm Max HR Achieved: 63 bpm Target HR (85% APMHR): 131 bpm % of APMHR: 41 Recovery HR: 61 bpm BP Resting BP: 126.0/75.0 mmHg Max BP: 126.0/75.0 mmHg Recovery BP: 125.0/83.0 mmHg ECG Resting ECG: NSR, RBBB, left axis deviation Stress ECG: No change Arrhythmia: None Recovery ECG: No change Recovery Arrhythmia: None Clinical Exercise duration: 04:03 min Highest Stage Achieved: Exercise capacity: 1.0 METs Stress ECG Conclusion Symptoms: Mild SOA, mild chest pressure. Arrhythmias/Ectopy: None. ST-T Changes: No significant changes. Conclusion: Unremarkable Lexiscan stress. Myoview images reported separately. Test Summary REST . . . . . . . Resting REST 03:55 . . 61 . 126/ 75 . . Stage 1 01:00 . . 61 . . . . Stage 2 01:00 . . 62 . 110/ 68 . . Stage 3 01:00 . . 60 . 110/ 70 . . Stage 4 01:00 . . 61 . 118/ 71 . . Stage 4 01:03 . . 61 . 118/ 71 . Stop exercise at 04:03 RECOVERY 01:00 . . 61 . . . . RECOVERY 02:00 . . 62 . 119/ 76 . . RECOVERY 03:00 . . 61 . 125/ 83 . . RECOVERY 03:18 . . 62 . 125/ 83 . . Electronically signed by : Mylene Mathews, 12/11/2022 01:03:14
== END ==
LOC: RAD 06:20
PROVIDERS: PCP Internal Medicine Nephrology; Visit Provider Nurse Practitioner Family
DX: E11.69 Type 2 diabetes mellitus with other specified complication (principal); E78.2 Mixed hyperlipidemia; G47.33 Obstructive sleep apnea (adult) (pediatric); I10 Essential (primary) hypertension; I25.10 Atherosclerotic heart disease of native coronary artery without angina pectoris; K21.9 Gastro-esophageal reflux disease without esophagitis; R06.09 Other forms of dyspnea; R53.83 Other fatigue; R94.31 Abnormal electrocardiogram [ECG] [EKG]
CPT/HCPCS: 78452; 93017; 93306; A9502; J2785

== ENCOUNTER 2022-12-26 08:43 | Day surgery (SDC) | payer MEDICARE, SELFPAY ==
[2022-12-26] VITALS (10 sets, daily range): BP systolic 108–154; BP diastolic 57–100; PULSE 63–75; RESP 18–20; O2SAT 90–96; BMI 37.7
--- NOTE | 2022-12-26 07:10 | IR_ITS ---
APPROVED REPORT Patient Location: Outpatient Physician Gynecologist: AUGUST Newman RT (R) PROCEDURES Left heart catheterization Left ventriculogram Selective coronary angiogram Drug-eluting stent deployment in the proximal and mid dominant right coronary artery in a contiguous manner Drug-eluting stent deployment to the proximal 80 INDICATION Coronary artery disease, Accelerated angina pectoris, High risk abnormal Myoview Informed consent was obtained prior to the procedure. COMPLICATIONS None Estimated Blood Loss: Less than 10 ML TECHNIQUE One percent lidocaine used to anesthetize the right anterior aspect of the wrist. The right radial artery was accessed via the Seldinger technique. A 6 Mongolian sheath was placed in the right radial artery. 150 mg magnesium sulfate, 800 mcg of nitroglycerin, 1mg Lidocaine and 5000 U Heparin were given through the arterial sheath. The papa catheter was also used to perform left heart catheterization, left ventriculogram and selective coronary angiogram. In the diagnostic angiogram therapeutic heparin was administered giving a therapeutic ACT and the guide catheter was placed in the right coronary artery followed by Choice PT extra-support wire. Primary stenting could not be performed nor could passage of a 3 mm noncompliant balloon. A guide liner was required in order to pass the balloon through the severely stenotic area. The 3 mm x 20 mm balloon was deployed at 20 aravind to predilate. This allowed passage of a 3.5 x 38 mm Slaed frontier stent to be deployed at 20 aravind. An additional 4 mm x 26 mm Slade frontier stent was placed proximal to this yet still overlapping and extending back near the ostium this was delivered at 20 aravind. Following this the guide liner was advanced which allowed the balloon to pass into the midportion. The balloon was deployed at 21 aravind to post dilate the stenotic mid vessel area. The balloon was then brought back in the proximal and ostial segment and deployed at 22 aravind to post dilate. AUGUSTO-3 flow was present before and after the procedure. Following this the guide catheter was placed in the left main artery followed by Choice PT extra-support wire being placed down the LAD. The guide liner was advanced and a 3 mm x 26 mm Slade frontier stent was deployed at 20 aravind reducing the severe stenosis to 0%. AUGUSTO-3 flow was present before and after the procedure. At the end procedure the apparatus was removed the sheath was removed good hemostasis was achieved using TR banding patient was transferred to the postop putting in stable addition ANGIOGRAPHIC RESULTS The left main artery Normal The left anterior descending artery Is proximally normal and then has a mid vessel concentric 90% stenosis proximal to a large second diagonal artery. Distal to the second diagonal artery there is an additional 30 to 40% stenosis. The circumflex artery Is nondominant gives rise to a large ramus intermedius which has a proximal 40% stenosis. The circumflex artery has 20% mid vessel stenosis. A terminal obtuse marginal artery is small caliber and has a proximal 80 to 90% stenosis and then tapers. The right coronary artery Is a large dominant vessel and has proximal 20% with tandem mid vessel 70% stenoses. Distally there are diffuse 30 and 40% stenosis The ROSARIO ventriculogram reveals Normal at 60% The left ventricular end-diastolic pressure 20 mmHg IMPRESSION Severe two-vessel coronary disease as described above Successful stenting of the proximal mid and distal dominant right coronary with 2 contiguous drug-eluting stents reducing severe stenosis to 0% Successful stenting of the proximal to mid LAD severe disease reduced to 0% with 1 drug-eluting stent Normal ejection fraction Borderline LVEDP PLAN 1. Dual antiplatelet
[2022-12-26 09:32] LABS: Basophils # 0.1 K/mm3 (0-0.2); Basophils % 0.6 % (0.1-2.0); Eosinophils # 0.3 K/mm3 (0.0-0.4); Eosinophils % 3.5 % (0.1-12.0); Hemoglobin 15.2 g/dL (14.1-18.0); Lymphocytes # 2.7 K/mm3 (0.7-4.5); Lymphocytes % 29.5 % (10-50); Mean Corpuscular HGB Conc 32.9 g/dL (31.8-35.4); Mean Corpuscular Hemoglobin 28.9 pg (27.0-31.2); Mean Corpuscular Volume 87.9 fl (80-94); Mean Platelet Volume 7.8 fl (7.4-10.4); Monocytes # 0.5 K/mm3 (0.1-1.0); Monocytes % 5.6 % (1.7-9.3); Neutrophils # 5.5 K/mm3 (1.8-7.8); Neutrophils % 60.8 % (37.0-80.0); Platelet Count 280 K/mm3 (142-424); Red Blood Count 5.24 M/mm3 (4.60-6.20); Red Cell Distribution Width 13.9 % (11.5-17.5); White Blood Count 9.1 K/mm3 (4.8-10.8)
[2022-12-26 09:34] LABS: Chloride 92 mmol/L (98-107)
[2022-12-26 09:35] LABS: Potassium 4.5 mmoL/L (3.5-5.1); Sodium 132 mmol/L (136-145)
[2022-12-26 09:38] LABS: Anion Gap 18.5 mEq/L (5-15); Blood Urea Nitrogen 24 mg/dl (9-20); Calcium 9.2 mg/dl (8.4-10.2); Carbon Dioxide 26 mmol/L (22.0-30.0); Creatinine Clearance Estimated 111 mL/min (50-200); Estimated Glomerular Filt Rate 67 ml/min (>60); GFR (African American) 81 ML/MIN (>60); Glucose 375 mg/dl (74-100)
[2022-12-26 09:40] LABS: INR 0.94 (0.9-1.1); Prothrombin Time 10.2 seconds (10.1-12.5)
--- NOTE | 2022-12-26 14:17 | HMH.PHACL ---
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
[2022-12-26 14:20] LABS: CATHL Activated Clotting Time > 400 SEC (74-125)
== END 2022-12-26 15:58 | disposition home or self-care (01) ==
PROVIDERS: PCP Nurse Practitioner Family; Visit Provider Internal Medicine
DX: I25.118 Atherosclerotic heart disease of native coronary artery with other forms of angina pectoris; R94.30 Abnormal result of cardiovascular function study, unspecified; E11.9 Type 2 diabetes mellitus without complications; E66.9 Obesity, unspecified
CPT/HCPCS: 80048; 85025; 85347; 85610; 92928; 93458; 99152; 99153; C1725; C1760; C1769; C1876; C9600; J1644; Q9967

== ENCOUNTER 2023-02-05 09:51 | Outpatient (RCR) | payer MEDICARE, SELFPAY | END 2023-03-09 10:00 | disposition home or self-care (01) | LOC: PT 09:51 | PROVIDERS: Visit Provider Internal Medicine | DX: I25.10 Atherosclerotic heart disease of native coronary artery without angina pectoris (principal); Z95.5 Presence of coronary angioplasty implant and graft | CPT/HCPCS: 93798 ==

== ENCOUNTER → 2023-04-30 08:26 | Outpatient (CLI) | payer MEDICARE, SELFPAY ==
[2023-04-30 08:52] LABS: Basophils # 0.1 K/mm3 (0-0.2); Basophils % 0.7 % (0.1-2.0); Eosinophils # 0.5 K/mm3 (0.0-0.4); Eosinophils % 4.9 % (0.1-12.0); Hematocrit 44.7 % (42.0-52.0); Hemoglobin 15.7 g/dL (14.1-18.0); Lymphocytes # 3.4 K/mm3 (0.7-4.5); Lymphocytes % 32.7 % (10-50); Mean Corpuscular Hemoglobin 31.3 pg (27.0-31.2); Mean Corpuscular Volume 89.3 fl (80-94); Mean Platelet Volume 7.9 fl (7.4-10.4); Monocytes # 0.6 K/mm3 (0.1-1.0); Monocytes % 5.6 % (1.7-9.3); Neutrophils # 5.8 K/mm3 (1.8-7.8); Neutrophils % 56.2 % (37.0-80.0); Platelet Count 224 K/mm3 (142-424); Red Blood Count 5.01 M/mm3 (4.60-6.20); Red Cell Distribution Width 14.1 % (11.5-17.5); White Blood Count 10.4 K/mm3 (4.8-10.8)
[2023-04-30 09:44] LABS: Alanine Aminotransferase 53 U/L (12-78); Albumin Level 4.3 g/dl (3.5-5.0); Albumin/Globulin Ratio 1.7 (1.1-1.8); Alkaline Phosphatase 94 U/L (38-126); Anion Gap 14.7 mEq/L (5-15); Aspartate Amino Transferase 47 U/L (17-59); Bilirubin,Total 0.7 mg/dl (0.2-1.3); Blood Urea Nitrogen 24 mg/dl (9-20); Calcium 9.1 mg/dl (8.4-10.2); Carbon Dioxide 28 mmol/L (22.0-30.0); Chloride 95 mmol/L (98-107); Chol/HDL Ratio 4.8 (1-3.5); Cholesterol 101 mg/dl (140-200); Estimated Glomerular Filt Rate 75 ml/min (>60); GFR (African American) 90 ML/MIN (>60); Globulin 2.5 g/dL (1.3-3.2); Glucose 312 mg/dl (74-100); HDL Cholesterol 21 mg/dl (40-60); Potassium 4.7 mmoL/L (3.5-5.1); Sodium 133 mmol/L (136-145); Total Protein,Serum 6.8 g/dl (6.3-8.2); Triglycerides 328 mg/dl (30-150); VLDL Cholesterol 66 mg/dL (0-40)
[2023-04-30 09:55] LABS: Direct LDL Cholesterol 41.96 mg/dL (100-129)
[2023-04-30 10:03] LABS: Free T4 (Free Thyroxine) 1.29 ng/dl (0.78-2.19)
[2023-04-30 10:12] LABS: Thyroid Stimulating Hormone 2.88 uIU/mL (0.465-4.68)
[2023-04-30 10:15] LABS: Prostate Specific Ag Screen 0.8 ng/ml (0.0-4.0)
[2023-04-30 11:51] LABS: Hemoglobin A1C 11.5 % (4.0-6.0)
== END ==
PROVIDERS: Urology; PCP Nurse Practitioner Family; Visit Provider Nurse Practitioner Family
DX: E11.69 Type 2 diabetes mellitus with other specified complication (principal); G47.9 Sleep disorder, unspecified; R94.31 Abnormal electrocardiogram [ECG] [EKG]; E55.9 Vitamin D deficiency, unspecified; Z12.5 Encounter for screening for malignant neoplasm of prostate; I20.89 Other forms of angina pectoris; Z79.4 Long term (current) use of insulin
CPT/HCPCS: 36415; 80053; 80061; 82306; 83036; 84439; 84443; 85025; G0103

== ENCOUNTER → 2023-05-01 15:48 | Outpatient (CLI) | payer MEDICARE, SELFPAY ==
[2023-05-01 15:24] LABS: Amphetamine/Metha Screen,Urine Negative ng/ml (<1000)
[2023-05-01 15:25] LABS: Barbiturates Screen,Urine Negative ng/ml (<200); Benzodiazepines Screen,Urine Negative ng/ml (<200)
[2023-05-01 15:27] LABS: Cannabinoid Screen,Urine Positive ng/ml (<50)
[2023-05-01 15:28] LABS: Cocaine Screen,Urine Negative ng/ml (<300)
[2023-05-01 15:29] LABS: Methadone Screen,Urine Negative ng/ml (<300); Opiate Screen,Urine Negative ng/ml (<300)
[2023-05-01 15:30] LABS: Phencyclidine Screen,Urine Negative ng/ml (<25)
[2023-05-03 14:47] LABS: C-Peptide 4.4 ng/mL (1.1-4.4)
== END ==
PROVIDERS: PCP Nurse Practitioner Family; Visit Provider Emergency Medicine
DX: R73.9 Hyperglycemia, unspecified (principal); Z79.899 Other long term (current) drug therapy
CPT/HCPCS: 80305; 84681

== ENCOUNTER → 2023-06-05 12:46 | Outpatient (CLI) | payer MEDICARE, SELFPAY ==
--- NOTE | 2023-06-05 12:50 | US_ITS ---
FINAL REPORT CLINICAL HISTORY: Decreased pulses in lower extremities, previous smoker, HTN, DM, hyperlipidemia, Bilateral claudication, bilateral rest pain, obesity. FINDINGS: COMPLETE ANKLE/BRACHIAL INDICES BILATERAL Complete ankle brachial indices were obtained. The right CELENA is 1.1. The left CELENA is 1.1. IMPRESSION: ABIs are within normal limits bilaterally. Reviewed, Interpreted and Dictated by Juan Manuel Gibson III, MD Transcribed by Jamaica Jones Authenticated and [facility]
== END ==
PROVIDERS: PCP Nurse Practitioner Family; Visit Provider Nurse Practitioner Family
DX: R09.89 Other specified symptoms and signs involving the circulatory and respiratory systems (principal)
CPT/HCPCS: 93923

== ENCOUNTER 2023-07-22 21:57 | Outpatient (CLI) | payer MEDICARE, SELFPAY ==
[2023-07-23 01:08] LABS: Amphetamine/Metha Screen,Urine Negative ng/ml (<1000)
[2023-07-23 01:13] LABS: Barbiturates Screen,Urine Negative ng/ml (<200)
[2023-07-23 01:14] LABS: Benzodiazepines Screen,Urine Negative ng/ml (<200); Cannabinoid Screen,Urine Negative ng/ml (<50)
[2023-07-23 01:15] LABS: Cocaine Screen,Urine Negative ng/ml (<300)
[2023-07-23 01:16] LABS: Methadone Screen,Urine Negative ng/ml (<300); Opiate Screen,Urine Negative ng/ml (<300)
[2023-07-23 01:17] LABS: Phencyclidine Screen,Urine Negative ng/ml (<25)
[2023-07-28 11:20] LABS: Opiates Negative (Cutoff=100); Oxycodone (GC/MS) 954 ng/mL (Cutoff=100); Oxymorphone (GC/MS) 385 ng/mL (Cutoff=100)
[2023-07-30 09:22] LABS: Gabapentin,Urine 334.9 ug/mL (.)
== END 2023-07-22 23:59 | disposition home or self-care (01) ==
LOC: LAB.DROPOF 21:58
PROVIDERS: PCP Nurse Practitioner Family; Visit Provider Nurse Practitioner Family
DX: G62.89 Other specified polyneuropathies; R78.1 Finding of opiate drug in blood; Z79.899 Other long term (current) drug therapy
CPT/HCPCS: 80307; 80361; 80365; G0480

== ENCOUNTER 2023-09-03 08:20 | Outpatient (CLI) | payer MEDICARE, SELFPAY ==
[2023-09-03 08:30] LABS: Microscopic, Urine URINE MICROSCOPIC (MICROSCOPIC)
[2023-09-03 09:14] LABS: Appearance,Urine CLEAR (Clear); Bilirubin,Urine Negative (Negative); Blood, Urine Negative (Negative); Color,Urine YELLOW (Yellow); Glucose,Urine (UA) 3+ (Negative); Ketones,Urine Negative (Negative); Leukocyte Esterase,Urine Negative (Negative); Nitrate,Urine Negative (Negative); Protein,Urine Negative (Negative); Urobilinogen,Urine 0.2 EU/dl (0.2)
[2023-09-03 09:32] LABS: Hematocrit 42.3 % (42.0-52.0); Hemoglobin 14.5 g/dL (14.1-18.0); Mean Corpuscular HGB Conc 34.3 g/dL (31.8-35.4); Mean Corpuscular Hemoglobin 31.6 pg (27.0-31.2); Mean Corpuscular Volume 92.1 fl (80-94); Microalbumin/Creatinine Ratio 15.6; Platelet Count 261 K/mm3 (142-424); Red Blood Count 4.59 M/mm3 (4.60-6.20); Red Cell Distribution Width 14.1 % (11.5-17.5); White Blood Count 9.1 K/mm3 (4.8-10.8)
[2023-09-03 09:36] LABS: Creatinine,Urine Random 119 mg/dL (Not Estab.)
[2023-09-03 09:41] LABS: Alanine Aminotransferase 53 U/L (12-78); Albumin Level 4.2 g/dl (3.5-5.0); Albumin/Globulin Ratio 1.9 (1.1-1.8); Alkaline Phosphatase 101 U/L (38-126); Anion Gap 15.4 mEq/L (5-15); Aspartate Amino Transferase 40 U/L (17-59); Bilirubin,Total 0.4 mg/dl (0.2-1.3); Blood Urea Nitrogen 26 mg/dl (9-20); Calcium 9.4 mg/dl (8.4-10.2); Carbon Dioxide 26 mmol/L (22.0-30.0); Chloride 98 mmol/L (98-107); Estimated Glomerular Filt Rate 67 ml/min (>60); GFR (African American) 81 ML/MIN (>60); Globulin 2.2 g/dL (1.3-3.2); Glucose 271 mg/dl (74-100); Potassium 4.4 mmoL/L (3.5-5.1); Sodium 135 mmol/L (136-145); Total Protein,Serum 6.4 g/dl (6.3-8.2); Uric Acid 4.6 mg/dl (3.5-8.5)
[2023-09-03 09:43] LABS: RBC,Urine Occasional #/hpf (0-3); Squamous Epithelial Cell,Urine Occasional #/hpf (0-5)
[2023-09-03 09:44] LABS: Bacteria,Urine Trace /lpf
[2023-09-03 10:06] LABS: Hemoglobin A1C 11.6 % (4.0-6.0)
== END 2023-09-03 23:59 ==
LOC: LAB 08:23
PROVIDERS: PCP Nurse Practitioner Family; Visit Provider Internal Medicine Nephrology
DX: E11.29 Type 2 diabetes mellitus with other diabetic kidney complication (principal); N17.9 Acute kidney failure, unspecified; N18.30 Chronic kidney disease, stage 3 unspecified; I10 Essential (primary) hypertension; E55.9 Vitamin D deficiency, unspecified; Z79.4 Long term (current) use of insulin; Z79.899 Other long term (current) drug therapy
CPT/HCPCS: 36415; 80053; 81001; 82043; 82306; 82570; 83036; 84155; 84550; 85014; 85018; 85048; 85049

== ENCOUNTER 2023-11-13 10:58 | Outpatient (CLI) | payer MEDICARE, SELFPAY ==
--- NOTE | 2023-11-13 | CA_ITS ---
APPROVED REPORT Exam: Pharmacologic Technologist: Juany Billy, Ht: 5 ft 10 in Wt: 265 lbs BSA: 2.35 m2 HR: 65 bpm BP: 104/68 mmHg Rhythm: NSR, 1 DEGREE AVB, RBBB, LAFB Indications: CP, CAD Medical History Medical History: HTN, Hyperlipidemia, Diabetes, Smoking Medications: Lisinopril,,,,, Aspirin,,,,, Metformin,,,,, Gabapentin,,,,, Allopurinol,,,,, Pantoprazole,,,,, Atorvastatin,,,,, Escitalopram,,,,, Ropinirole,,,,, TAMSULOSIN,,,,, Montelukast,,,,, MeLOXICAM,,,,, Allergies: PENICILLIN Cardiac Risk Factors: HTN, Hyperlipidemia, Diabetes , Smoking Stress Test Details Test: LEXISCAN HR Resting HR: 65 bpm Max Heart Rate (APMHR): 153 bpm Max HR Achieved: 70 bpm Target HR (85% APMHR): 130 bpm % of APMHR: 46 Recovery HR: 67 bpm BP Resting BP: 104/68 mmHg Max BP: 114/73 mmHg Recovery BP: 114.0/73.0 mmHg ECG Resting ECG: NSR, I DEGREE AVB, RBBB, LAFB Stress ECG: No significant ST changes Arrhythmia: None Clinical Exercise duration: 04:01 min Highest Stage Achieved: Exercise capacity: 1.0 METs Stress ECG Conclusion PT HAD RIGHT ARM PAIN/DISCOMFORT AND SOA NO CP ECTOPY: NONE NO SIGNIFICANT ST CHANGES CONCLUSION: UNREMARKABLE LEXISCAN STRESS MYOVIEW IMAGES REPORTED SEPARATELY Test Summary REST 02:57 . . 65 . 104/ 68 . . Stage 1 01:00 . . 68 . . . . Stage 2 01:00 . . 68 . 107/ 64 . . Stage 3 01:00 . . 68 . . . . Stage 4 01:00 . . 66 . 106/ 60 . . Stage 4 01:01 . . 66 . 106/ 60 . Stop exercise at 04:01 RECOVERY 01:00 . . 69 . 111/ 70 . . RECOVERY 02:00 . . 68 . 111/ 70 . . RECOVERY 03:00 . . 68 . 114/ 73 . . RECOVERY 03:36 . . 66 . 114/ 73 . . Electronically signed by : Mylene Mathews MD 11/15/2023 01:31:51
--- NOTE | 2023-11-13 10:59 | NM_ITS ---
APPROVED REPORT Exam: Nuclear Stress Test Indication: CAD, 4 STENTS, HTN, DM, HYPERLIPIDEMIA, FM HX, C.P., SOB, FATIGUE Patient Location: c.p., sob, fatigue Stress Tech: Juany Billy [place] Tech:Arlet Ta ARRSoumya RT (R)(N)(M) Ht: 5 ft 11 in Wt: 260 lbs HR: 65 bpm BP: 104/68 mmHg BSA: 2.36 m2 TID: 1.25 BMI: 36.2 History: CAD, 4 STENTS, HTN, DM, HYPERLIPIDEMIA, FM HX, C.P., SOB, FATIGUE Procedure: Patient received 0.4 mg of intravenous Lexiscan, resting heart rate 65 bpm, resting blood pressure 104/68 mmHg, with Lexiscan maximum heart rate achieved was 70 bpm which is % of the maximum predicted heart rate and blood pressure was 114/73 mmHg. With Lexiscan, patient denied any complaint of chest pain. Cardiac Stress and Resting SPECT Images: Cardiac Stress and Resting SPECT images were obtained using technetium 99m Myoview 31.1 mCi stress and 10.62 mCi at rest. Resting and stress imaging in supine and prone positions demonstrate a large sized, moderate, predominantly fixed perfusion defect in the inferior LV wall. There is also a medium sized, moderate, partially reversible perfusion defect in the basal lateral LV wall. Gated imaging demonstrates mildly reduced LV systolic function. There is moderate hypokinesis of the basal lateral LV wall. LVEF is calculated at 48%. Conclusion: Large sized, moderate, predominantly fixed perfusion defect in the inferior LV wall. There is also a medium sized, moderate, partially reversible perfusion defect in the basal lateral LV wall. Findings are overall suggestive of multivessel disease with presence of underlying ischemia. Gated imaging demonstrates mildly reduced LV systolic function. There is moderate hypokinesis of the basal lateral LV wall. LVEF is calculated at 48%. Electronically signed by : Mylene Mathews MD 11/15/2023 01:34:51
[2023-11-13] MEDS: SODIUM CHLORIDE 0.9% 10ML SYR (RAD ONLY) 10 ML IV ×2 (11:30→13:00)
[2023-11-13] MEDS: REGADENOSON 0.4MG/5ML SYRINGE 0.400000000000000022 MG IV (13:00)
[2023-11-13] MEDS: ISOTOPE MYOVIEW (PER STUDY) 1 DOSE IV (13:26)
== END 2023-11-13 23:59 | disposition home or self-care (01) ==
LOC: RAD 10:59
PROVIDERS: PCP Nurse Practitioner Family; Visit Provider Nurse Practitioner Family
DX: I25.118 Atherosclerotic heart disease of native coronary artery with other forms of angina pectoris (principal); R94.31 Abnormal electrocardiogram [ECG] [EKG]
CPT/HCPCS: 78452; 93017; 93018; A9502; J2785

== ENCOUNTER 2023-12-10 08:34 | Day surgery (SDC) | payer MEDICARE, SELFPAY ==
[2023-12-10] VITALS (13 sets, daily range): BP systolic 115–138; BP diastolic 56–88; PULSE 68–83; RESP 16–19; TEMP 36.9; O2SAT 94–97; BMI 37.5
--- NOTE | 2023-12-10 07:12 | IR_ITS ---
APPROVED REPORT Patient Location: Outpatient PROCEDURES Selective coronary angiogram Drug-eluting stent deployment to the proximal mid and distal dominant right coronary artery INDICATION Coronary artery disease, Abnormal Myoview, Informed consent was obtained prior to the procedure. COMPLICATIONS NONE Estimated Blood Loss: LESS THAN 10 ML TECHNIQUE One percent lidocaine used to anesthetize the right anterior aspect of the wrist. The right radial artery was accessed via the Seldinger technique. A 6 Vietnamese sheath was placed in the right radial artery. 2.5 mg of Verapamil, 800 mcg of nitroglycerin, 1mg Lidocaine and 5000 U Heparin were given through the arterial sheath. The papa catheter was also used to perform selective coronary angiogram. At the end of the procedure therapeutic heparin was administered giving a therapeutic ACT and the guide catheter was placed in the right coronary followed by Choice PT extra-support wire placed distally. A guide liner was required and a 3.5 x 30 mm Slade frontier stent was placed in the mid right coronary artery after it was stuck on other drug-eluting struts. The stent was deployed at 24 aravind. An additional 3.5 x 38 mm [place] frontier stent was then placed in the proximal segment and deployed at 24 aravind. This overlapped the first stent. An additional 3.5 x 38 mm Slade frontier stent was then placed distal to the for stent yet still overlapping it and deployed at 20 aravind. The balloon was brought back and deployed at 24 aravind throughout the 3.5 mm stents. A 4 mm x 27 mm noncompliant balloon was then advanced in the proximal mid and distal segment and deployed at 24 aravind on multiple inflations to post dilate. AUGUSTO-3 flow was present before and after the procedure. At the end the procedure the apparatus was removed the sheath was removed and hemostasis was achieved using TR banding patient was transferred to the postop holding in stable condition ANGIOGRAPHIC RESULTS The left main artery Normal The left anterior descending artery Has proximal 30% stenosis followed by a stent which extends to the proximal to mid segment which is widely patent with minimal in-stent restenosis. Distally there is transitioning into a 40% stenosis The circumflex artery Nondominant with mild luminal irregularities The right coronary artery Large dominant with stents in the proximal mid and distal segment with the mid segment having 90% stenosis followed by additional 70% distal stenoses IMPRESSION Severe in-stent restenosis in the mid to distal dominant right coronary Successful percutaneous reconstruction of the proximal mid and distal dominant right coronary severe to critical disease reduced to 0% with 3 contiguous drug-eluting stents PLAN 1. Dual antiplatelet therapy 2. Cardiac rehabilitation 3. Avoidance of tobacco products 4. Risk factor modification 5. LDL less than 55 to be achieved with high intensity statin Electronically signed by : Nas Magaña MD 12/10/2023 13:07:55
[2023-12-10 09:07] LABS: Basophils # 0.1 K/mm3 (0-0.2); Basophils % 1.2 % (0.1-2.0); Eosinophils # 0.6 K/mm3 (0.0-0.4); Eosinophils % 5.4 % (0.1-12.0); Hematocrit 44.1 % (42.0-52.0); Hemoglobin 14.9 g/dL (14.1-18.0); Lymphocytes # 3.4 K/mm3 (0.7-4.5); Lymphocytes % 33.2 % (10-50); Mean Corpuscular HGB Conc 33.8 g/dL (31.8-35.4); Mean Corpuscular Hemoglobin 30.9 pg (27.0-31.2); Mean Corpuscular Volume 91.4 fl (80-94); Mean Platelet Volume 7.9 fl (7.4-10.4); Monocytes # 0.6 K/mm3 (0.1-1.0); Monocytes % 6.2 % (1.7-9.3); Neutrophils # 5.5 K/mm3 (1.8-7.8); Platelet Count 269 K/mm3 (142-424); Red Blood Count 4.83 M/mm3 (4.60-6.20); Red Cell Distribution Width 14.1 % (11.5-17.5); White Blood Count 10.2 K/mm3 (4.8-10.8)
[2023-12-10 09:14] LABS: Chloride 98 mmol/L (98-107); Potassium 4.3 mmoL/L (3.5-5.1); Sodium 134 mmol/L (136-145)
[2023-12-10 09:17] LABS: Anion Gap 15.3 mEq/L (5-15); Blood Urea Nitrogen 22 mg/dl (9-20); Carbon Dioxide 25 mmol/L (22.0-30.0); Creatinine Clearance Estimated 93 mL/min (50-200); Estimated Glomerular Filt Rate 55 ml/min (>60); GFR (African American) 67 ML/MIN (>60)
[2023-12-10 09:18] LABS: Glucose 206 mg/dl (74-100)
[2023-12-10] MEDS: HEPARIN 1,000 UNITS/500ML NS (CATH LAB) 3000 UNIT IV (09:44)
[2023-12-10] MEDS: LIDOCAINE 1% 10ML MDV 20 ML IJ (09:44)
[2023-12-10] MEDS: diphenhydrAMINE 50MG/ML VIAL 50 MG IV (09:45)
[2023-12-10] MEDS: NITROGLYCERIN 800MCG/8ML SYR (CATH LAB) 800 MCG IA (09:45)
[2023-12-10] MEDS: VERAPAMIL 2.5MG/ML 2ML VIAL 2.5 MG IV (09:45)
[2023-12-10] MEDS: 0.9 % SODIUM CHLORIDE 500 ML 25 ML IV (09:45)
[2023-12-10] MEDS: HEPARIN 1,000 UNITS/ML 10ML VIAL (CATH LAB) 10000 UNIT IV (09:45)
[2023-12-10] MEDS: MIDAZOLAM HCL 1MG/1ML 5ML VIAL 1 MG IV (10:40)
[2023-12-10] MEDS: FENTANYL 100MCG/2ML VIAL 50 MCG IV (10:41)
[2023-12-10] MEDS: IOPAMIDOL-370 (76%);100ML BOTTLE 85 ML IV (12:51)
[2023-12-10 12:53] LABS: CATHL Activated Clotting Time 352 SEC (74-125)
== END 2023-12-10 14:06 | disposition home or self-care (01) ==
PROVIDERS: PCP Nurse Practitioner Family; Visit Provider Internal Medicine
DX: R93.1 Abnormal findings on diagnostic imaging of heart and coronary circulation (principal); I25.118 Atherosclerotic heart disease of native coronary artery with other forms of angina pectoris; T82.855A Stenosis of coronary artery stent, initial encounter; Z79.899 Other long term (current) drug therapy; Z79.4 Long term (current) use of insulin; Z79.85 Long-term (current) use of injectable non-insulin antidiabetic drugs; I10 Essential (primary) hypertension; R94.31 Abnormal electrocardiogram [ECG] [EKG]; R06.02 Shortness of breath; Y83.1 Surgical operation with implant of artificial internal device as the cause of abnormal reaction of the patient, or of later complication, without mention of misadventure at the time of the procedure
CPT/HCPCS: 80048; 85025; 85347; 92928; 93454; 99152; 99153; C1725; C1769; C1874; C9600; J1644; J2250; J3010; Q9967

== ENCOUNTER 2023-12-12 07:42 | Outpatient (CLI) | payer MEDICARE, SELFPAY ==
[2023-12-12 08:06] LABS: Basophils # 0.1 K/mm3 (0-0.2); Basophils % 1.3 % (0.1-2.0); Eosinophils # 0.6 K/mm3 (0.0-0.4); Eosinophils % 6.2 % (0.1-12.0); Hematocrit 42.3 % (42.0-52.0); Hemoglobin 13.9 g/dL (14.1-18.0); Lymphocytes # 3.4 K/mm3 (0.7-4.5); Lymphocytes % 38.5 % (10-50); Mean Corpuscular HGB Conc 32.8 g/dL (31.8-35.4); Mean Corpuscular Hemoglobin 30.5 pg (27.0-31.2); Mean Corpuscular Volume 92.9 fl (80-94); Mean Platelet Volume 8.3 fl (7.4-10.4); Monocytes # 0.5 K/mm3 (0.1-1.0); Monocytes % 5.9 % (1.7-9.3); Neutrophils # 4.3 K/mm3 (1.8-7.8); Neutrophils % 48.2 % (37.0-80.0); Platelet Count 253 K/mm3 (142-424); Red Blood Count 4.55 M/mm3 (4.60-6.20); Red Cell Distribution Width 14.4 % (11.5-17.5); White Blood Count 8.9 K/mm3 (4.8-10.8)
[2023-12-12 08:53] LABS: Chloride 99 mmol/L (98-107)
[2023-12-12 08:54] LABS: Potassium 4.5 mmoL/L (3.5-5.1); Sodium 134 mmol/L (136-145)
[2023-12-12 08:57] LABS: Anion Gap 12.5 mEq/L (5-15); Blood Urea Nitrogen 21 mg/dl (9-20); Calcium 9.2 mg/dl (8.4-10.2); Carbon Dioxide 27 mmol/L (22.0-30.0); Estimated Glomerular Filt Rate 60 ml/min (>60); GFR (African American) 73 ML/MIN (>60); Glucose 225 mg/dl (74-100)
== END 2023-12-12 23:59 | disposition home or self-care (01) ==
LOC: LAB 07:43
PROVIDERS: Internal Medicine; PCP Nurse Practitioner Family; Visit Provider Nurse Practitioner Family
DX: I25.10 Atherosclerotic heart disease of native coronary artery without angina pectoris (principal); Z95.5 Presence of coronary angioplasty implant and graft; Z87.891 Personal history of nicotine dependence
CPT/HCPCS: 36415; 80048; 85025

== ENCOUNTER 2023-12-28 08:16 | Outpatient (RCR) | payer MEDICARE, SELFPAY | END 2024-02-04 10:00 | disposition home or self-care (01) | LOC: PT 08:16 | PROVIDERS: Visit Provider Internal Medicine | DX: I25.10 Atherosclerotic heart disease of native coronary artery without angina pectoris (principal); Z95.5 Presence of coronary angioplasty implant and graft | CPT/HCPCS: 93798 ==

== ENCOUNTER 2024-01-25 09:36 | Outpatient (CLI) | payer MEDICARE, SELFPAY ==
--- NOTE | 2024-01-25 09:57 | XR_ITS ---
FINAL REPORT CLINICAL HISTORY: Nonspecific chest pain FINDINGS: PA and lateral views of the chest are obtained. There is no prior exam for comparison. The cardiac and mediastinal silhouettes are within normal limits. The lungs are clear. There is no pleural effusion, pneumothorax, or acute osseous abnormality. IMPRESSION: No radiographic evidence of acute cardiac or pulmonary disease. Reviewed, Interpreted and Dictated by Sabrina Alamo MD Transcribed by Saumya Morgan Authenticated and [facility]
[2024-01-25 10:22] LABS: Basophils # 0.1 K/mm3 (0-0.2); Basophils % 0.7 % (0.1-2.0); Eosinophils # 0.3 K/mm3 (0.0-0.4); Eosinophils % 4.7 % (0.1-12.0); Hematocrit 36.3 % (42.0-52.0); Hemoglobin 13.8 g/dL (14.1-18.0); Lymphocytes # 2.1 K/mm3 (0.7-4.5); Lymphocytes % 30.4 % (10-50); Mean Corpuscular Hemoglobin 35.1 pg (27.0-31.2); Mean Corpuscular Volume 92.4 fl (80-94); Mean Platelet Volume 7.6 fl (7.4-10.4); Monocytes # 0.5 K/mm3 (0.1-1.0); Monocytes % 6.7 % (1.7-9.3); Neutrophils % 57.6 % (37.0-80.0); Platelet Count 220 K/mm3 (142-424); Red Blood Count 3.93 M/mm3 (4.60-6.20); Red Cell Distribution Width 14.5 % (11.5-17.5); White Blood Count 6.9 K/mm3 (4.8-10.8)
[2024-01-25 11:00] LABS: Alanine Aminotransferase 39 U/L (12-78); Albumin Level 3.9 g/dl (3.5-5.0); Alkaline Phosphatase 90 U/L (38-126); Anion Gap 12.5 mEq/L (5-15); Aspartate Amino Transferase 35 U/L (17-59); Bilirubin,Direct 0.1 mg/dl (0.0-0.4); Bilirubin,Indirect 0.5 mg/dL (0.0-0.9); Bilirubin,Total 0.6 mg/dl (0.2-1.3); Bilirubin,Unconjugated 0.5 mg/dL (0.0-1.1); Blood Urea Nitrogen 25 mg/dl (9-20); Calcium 9.1 mg/dl (8.4-10.2); Carbon Dioxide 26 mmol/L (22.0-30.0); Chloride 102 mmol/L (98-107); Estimated Glomerular Filt Rate 67 ml/min (>60); GFR (African American) 81 ML/MIN (>60); Glucose 226 mg/dl (74-100); Potassium 4.5 mmoL/L (3.5-5.1); Sodium 136 mmol/L (136-145); Total Protein,Serum 6.3 g/dl (6.3-8.2)
[2024-01-25 11:18] LABS: Free T4 (Free Thyroxine) 0.89 ng/dl (0.78-2.19)
[2024-01-25 11:30] LABS: Thyroid Stimulating Hormone 2.39 uIU/mL (0.465-4.68)
[2024-01-25 11:37] LABS: Troponin I < 0.01 ng/ml (0.00-0.034)
== END 2024-01-25 23:59 | disposition home or self-care (01) ==
LOC: LAB 09:37
PROVIDERS: PCP Nurse Practitioner Family; Visit Provider Nurse Practitioner Family
DX: R06.02 Shortness of breath (principal); E11.69 Type 2 diabetes mellitus with other specified complication; E11.9 Type 2 diabetes mellitus without complications; E66.9 Obesity, unspecified; R53.83 Other fatigue; I25.118 Atherosclerotic heart disease of native coronary artery with other forms of angina pectoris; R94.31 Abnormal electrocardiogram [ECG] [EKG]; K21.9 Gastro-esophageal reflux disease without esophagitis; G62.9 Polyneuropathy, unspecified; I10 Essential (primary) hypertension; E78.2 Mixed hyperlipidemia; R06.00 Dyspnea, unspecified; Z79.4 Long term (current) use of insulin
CPT/HCPCS: 36415; 71046; 80048; 80076; 84439; 84443; 84484; 85025

== ENCOUNTER 2024-03-02 08:53 | Outpatient (CLI) | payer MEDICARE, SELFPAY ==
[2024-03-02 09:04] LABS: Microscopic, Urine URINE MICROSCOPIC (MICROSCOPIC)
[2024-03-02 09:27] LABS: Basophils # 0.1 K/mm3 (0-0.2); Basophils % 0.7 % (0.1-2.0); Eosinophils # 0.6 K/mm3 (0.0-0.4); Eosinophils % 8.1 % (0.1-12.0); Hematocrit 41.7 % (42.0-52.0); Hemoglobin 13.6 g/dL (14.1-18.0); Lymphocytes # 2.5 K/mm3 (0.7-4.5); Lymphocytes % 34.3 % (10-50); Mean Corpuscular HGB Conc 32.5 g/dL (31.8-35.4); Mean Corpuscular Volume 92.3 fl (80-94); Mean Platelet Volume 7.7 fl (7.4-10.4); Monocytes # 0.4 K/mm3 (0.1-1.0); Monocytes % 4.9 % (1.7-9.3); Neutrophils # 3.7 K/mm3 (1.8-7.8); Neutrophils % 51.9 % (37.0-80.0); Platelet Count 231 K/mm3 (142-424); Red Blood Count 4.52 M/mm3 (4.60-6.20); Red Cell Distribution Width 14.6 % (11.5-17.5); White Blood Count 7.2 K/mm3 (4.8-10.8)
[2024-03-02 09:39] LABS: Appearance,Urine CLEAR (Clear); Bilirubin,Urine Negative (Negative); Blood, Urine Negative (Negative); Color,Urine YELLOW (Yellow); Glucose,Urine (UA) 3+ (Negative); Ketones,Urine Negative (Negative); Leukocyte Esterase,Urine Negative (Negative); Nitrate,Urine Negative (Negative); Protein,Urine Negative (Negative); Urobilinogen,Urine 0.2 EU/dl (0.2)
[2024-03-02 09:46] LABS: Alanine Aminotransferase 55 U/L (12-78); Albumin Level 3.8 g/dl (3.5-5.0); Albumin/Globulin Ratio 1.5 (1.1-1.8); Alkaline Phosphatase 87 U/L (38-126); Anion Gap 9.7 mEq/L (5-15); Aspartate Amino Transferase 47 U/L (17-59); Bilirubin,Total 0.7 mg/dl (0.2-1.3); Blood Urea Nitrogen 17 mg/dl (9-20); Calcium 9.1 mg/dl (8.4-10.2); Carbon Dioxide 28 mmol/L (22.0-30.0); Chloride 99 mmol/L (98-107); Estimated Glomerular Filt Rate 75 ml/min (>60); GFR (African American) 90 ML/MIN (>60); Globulin 2.6 g/dL (1.3-3.2); Glucose 312 mg/dl (74-100); Potassium 4.7 mmoL/L (3.5-5.1); Sodium 132 mmol/L (136-145); Total Protein,Serum 6.4 g/dl (6.3-8.2); Uric Acid 4.2 mg/dl (3.5-8.5)
[2024-03-02 09:47] LABS: Hemoglobin A1C 9.8 % (4.0-6.0)
[2024-03-02 09:59] LABS: 25-OH Vitamin D, Total 29.8 ng/mL (30-100)
[2024-03-02 10:45] LABS: Creatinine,Urine Random 77 mg/dL (Not Estab.)
== END 2024-03-02 23:59 | disposition home or self-care (01) ==
LOC: LAB 08:56
PROVIDERS: PCP Nurse Practitioner Family; Visit Provider Internal Medicine Nephrology
DX: N18.2 Chronic kidney disease, stage 2 (mild) (principal); E11.29 Type 2 diabetes mellitus with other diabetic kidney complication; E55.9 Vitamin D deficiency, unspecified; I10 Essential (primary) hypertension
CPT/HCPCS: 36415; 80053; 81001; 82306; 82570; 83036; 84156; 84550; 85025

== ENCOUNTER 2024-08-02 09:08 | Outpatient (CLI) | payer MEDICARE, SELFPAY ==
[2024-08-02 18:14] LABS: Basophils # 0.1 K/mm3 (0-0.2); Basophils % 0.7 % (0.1-2.0); Eosinophils # 0.5 K/mm3 (0.0-0.4); Eosinophils % 6.1 % (0.1-12.0); Hematocrit 43.5 % (42.0-52.0); Hemoglobin 14.8 g/dL (14.1-18.0); Lymphocytes # 2.9 K/mm3 (0.7-4.5); Lymphocytes % 34.2 % (10-50); Mean Corpuscular Hemoglobin 29.3 pg (27.0-31.2); Mean Corpuscular Volume 86.1 fl (80-94); Mean Platelet Volume 9.5 fl (7.4-10.4); Monocytes # 0.7 K/mm3 (0.1-1.0); Monocytes % 7.7 % (1.7-9.3); Neutrophils # 4.3 K/mm3 (1.8-7.8); Neutrophils % 51.2 % (37.0-80.0); Platelet Count 276 K/mm3 (142-424); Red Blood Count 5.05 M/mm3 (4.60-6.20); Red Cell Distribution Width 12.9 % (11.5-17.5); White Blood Count 8.4 K/mm3 (4.8-10.8)
[2024-08-02 18:44] LABS: Alanine Aminotransferase 46 U/L (12-78); Albumin Level 4.8 g/dl (3.5-5.0); Albumin/Globulin Ratio 2.4 (1.1-1.8); Alkaline Phosphatase 97 U/L (38-126); Anion Gap 16.7 mEq/L (5-15); Aspartate Amino Transferase 46 U/L (17-59); Bilirubin,Total 0.6 mg/dl (0.2-1.3); Blood Urea Nitrogen 25 mg/dl (9-20); Calcium 9.6 mg/dl (8.4-10.2); Carbon Dioxide 26 mmol/L (22.0-30.0); Chloride 95 mmol/L (98-107); Cholesterol 114 mg/dl (140-200); Estimated Glomerular Filt Rate 67 ml/min (>60); GFR (African American) 81 ML/MIN (>60); Glucose 215 mg/dl (74-100); HDL Cholesterol 23 mg/dl (40-60); Potassium 4.7 mmoL/L (3.5-5.1); Sodium 133 mmol/L (136-145); Total Protein,Serum 6.8 g/dl (6.3-8.2); Triglycerides 260 mg/dl (30-150); VLDL Cholesterol 52 mg/dL (0-40)
[2024-08-02 18:55] LABS: Direct LDL Cholesterol 40.93 mg/dL (100-129)
[2024-08-02 19:02] LABS: 25-OH Vitamin D, Total 28.6 ng/mL (30-100)
[2024-08-02 19:14] LABS: Thyroid Stimulating Hormone 3.03 uIU/mL (0.465-4.68)
== END 2024-08-02 23:59 | disposition home or self-care (01) ==
LOC: LAB.DROPOF 08-03 09:08
PROVIDERS: PCP Nurse Practitioner Family; Visit Provider Nurse Practitioner Family
DX: E11.69 Type 2 diabetes mellitus with other specified complication (principal); Z79.4 Long term (current) use of insulin; R53.83 Other fatigue; I25.119 Atherosclerotic heart disease of native coronary artery with unspecified angina pectoris; G62.9 Polyneuropathy, unspecified; I10 Essential (primary) hypertension; E66.9 Obesity, unspecified; Z68.37 Body mass index [BMI] 37.0-37.9, adult
CPT/HCPCS: 80053; 80061; 82306; 84443; 85025

== ENCOUNTER 2024-08-25 16:33 | Outpatient (CLI) | payer MEDICARE, SELFPAY ==
--- NOTE | 2024-08-25 16:37 | MR_ITS ---
PROCEDURE INFORMATION: Exam: MR Lumbar Spine Without Contrast Exam date and time: 08/25/2024 4:52 PM Age: 68 years old Clinical indication: Low back pain; Lower back pain worse when walking; Additional info: Spondylosis w/o myelopathy or radiculopathy lumbar region TECHNIQUE: Imaging protocol: Magnetic resonance imaging of the lumbar spine without contrast. COMPARISON: CT ABDOMEN PELVIS WO CON 10/22/2022 12:08 PM FINDINGS: Bones/joints: Vertebral body heights are preserved. High signal lesion within L1 is noted compatible with a hemangioma. Heterogeneous marrow signal elsewhere likely represents patchy fatty replacement and endplate changes. Multilevel lumbar spondylosis is noted with disc bulging, facet arthropathy and ligamentous thickening. Spinal cord: Visualized cord, conus medullaris and cauda equina are unremarkable without compression. L1-L2: At L1-L2 there is broad-based disc bulge ligament thickening and facet arthropathy causing moderate to severe canal narrowing, moderate left neural foraminal narrowing. L2-L3: At L2-L3 there is a broad-based disc bulge with facet arthropathy and ligamentous thickening causing severe canal narrowing impinging nerve roots. There is moderate neural foraminal narrowing. L3-L4: At L3-L4 there is broad-based disc bulge ligament thickening and facet arthropathy causing severe canal narrowing with crowding of nerve roots and moderate neural foraminal narrowing. L4-L5: At L4-L5 there is broad-based disc bulge with facet arthropathy and ligamentous thickening causing moderate to severe canal narrowing with pinching and nerve roots. There is moderate to severe left-sided and severe right-sided neural foraminal narrowing. L5-S1: At L5-S1 there is disc bulging with facet arthropathy causes concentric narrowing of the canal around the tapering thecal sac. There is severe left-sided and moderate to severe right-sided neural foraminal narrowing. Soft tissues: Unremarkable. IMPRESSION: Advanced multilevel lumbar spondylosis as described.
== END 2024-08-25 23:59 | disposition home or self-care (01) ==
LOC: RAD 16:35
PROVIDERS: PCP Nurse Practitioner Family; Visit Provider Anesthesiology
DX: M47.816 Spondylosis without myelopathy or radiculopathy, lumbar region (principal)
CPT/HCPCS: 72148

== ENCOUNTER 2024-08-29 12:13 | Outpatient (CLI) | payer MEDICARE, SELFPAY ==
[2024-08-29 12:21] LABS: Microscopic, Urine URINE MICROSCOPIC (MICROSCOPIC)
[2024-08-29 12:52] LABS: Basophils # 0.1 K/mm3 (0-0.2); Basophils % 0.5 % (0.1-2.0); Eosinophils # 0.3 K/mm3 (0.0-0.4); Eosinophils % 2.9 % (0.1-12.0); Hematocrit 42.7 % (42.0-52.0); Hemoglobin 14.6 g/dL (14.1-18.0); Lymphocytes # 4.2 K/mm3 (0.7-4.5); Lymphocytes % 36.4 % (10-50); Mean Corpuscular HGB Conc 34.2 g/dL (31.8-35.4); Mean Corpuscular Hemoglobin 29.1 pg (27.0-31.2); Mean Corpuscular Volume 85.1 fl (80-94); Mean Platelet Volume 9.4 fl (7.4-10.4); Monocytes # 0.9 K/mm3 (0.1-1.0); Monocytes % 7.4 % (1.7-9.3); Neutrophils # 6.1 K/mm3 (1.8-7.8); Neutrophils % 52.5 % (37.0-80.0); Platelet Count 269 K/mm3 (142-424); Red Blood Count 5.02 M/mm3 (4.60-6.20); White Blood Count 11.6 K/mm3 (4.8-10.8)
[2024-08-29 13:02] LABS: Creatinine,Urine Random 91 mg/dL (Not Estab.)
[2024-08-29 13:05] LABS: Appearance,Urine CLEAR (Clear); Bilirubin,Urine Negative (Negative); Blood, Urine Negative (Negative); Color,Urine YELLOW (Yellow); Glucose,Urine (UA) 3+ (Negative); Ketones,Urine Negative (Negative); Leukocyte Esterase,Urine Negative (Negative); Nitrate,Urine Negative (Negative); Protein,Urine Negative (Negative); Urobilinogen,Urine 0.2 EU/dl (0.2)
[2024-08-29 13:14] LABS: Squamous Epithelial Cell,Urine Occasional #/hpf (0-5)
[2024-08-29 13:44] LABS: Alanine Aminotransferase 44 U/L (12-78); Albumin Level 4.6 g/dl (3.5-5.0); Albumin/Globulin Ratio 2.4 (1.1-1.8); Alkaline Phosphatase 89 U/L (38-126); Anion Gap 13.2 mEq/L (5-15); Aspartate Amino Transferase 32 U/L (17-59); Bilirubin,Total 0.7 mg/dl (0.2-1.3); Blood Urea Nitrogen 29 mg/dl (9-20); Calcium 9.2 mg/dl (8.4-10.2); Carbon Dioxide 28 mmol/L (22.0-30.0); Chloride 96 mmol/L (98-107); Estimated Glomerular Filt Rate 60 ml/min (>60); GFR (African American) 73 ML/MIN (>60); Globulin 1.9 g/dL (1.3-3.2); Glucose 296 mg/dl (74-100); Potassium 5.2 mmoL/L (3.5-5.1); Sodium 132 mmol/L (136-145); Total Protein,Serum 6.5 g/dl (6.3-8.2); Uric Acid 5.1 mg/dl (3.5-8.5)
[2024-08-29 13:53] LABS: Hemoglobin A1C 12.3 % (4.0-6.0)
[2024-08-29 13:57] LABS: Intact Parathyroid Hormone 84.5 pg/mL (7.5-53.5)
[2024-08-29 14:01] LABS: 25-OH Vitamin D, Total 41.3 ng/mL (30-100)
== END 2024-08-29 23:59 | disposition home or self-care (01) ==
LOC: LAB 12:14
PROVIDERS: PCP Nurse Practitioner Family; Visit Provider Internal Medicine Nephrology
DX: E11.22 Type 2 diabetes mellitus with diabetic chronic kidney disease (principal); I12.9 Hypertensive chronic kidney disease with stage 1 through stage 4 chronic kidney disease, or unspecified chronic kidney disease; N18.2 Chronic kidney disease, stage 2 (mild); E55.9 Vitamin D deficiency, unspecified
CPT/HCPCS: 36415; 80053; 81001; 82306; 82570; 83036; 83970; 84156; 84550; 85025

== ENCOUNTER 2025-02-13 16:14 | Outpatient (CLI) | payer MEDICARE, SELFPAY ==
--- OUTSIDE RECORDS SUMMARY | 2025-02-13 16:17 | XMS_ITS | Clinical Summary ---
[facility] Address [address] [place] [address] Care Team Providers Care Network Lead Name Role Phone Wale Doyle MD Primary Care Provider [phone] Social History Tobacco Use Types Packs/Day Years Used Date Smoking Tobacco: Never Assessed Abuse Screen Answer Date Recorded Unsafe at Home or Work/School Not on file Feels Threatened by Someone? Not on file 02/2023 Does Anyone Keep You from Co ntacting Others or Doint Things Outside the Home? Not on file 04/06/2023 Physical Sign of Abuse Present Not on file 1 Housing Stability Answer Date Recorded Current Living Arrangements Not on file 02/2023 Potentially Unsafe Housing Conditions Not on maame e 04/06/2023 Family and Community Support Answer Jaylan e Recorded Help with Day-to-Day Activities Not on file 04/06/2023 Lonely or Isolated Not on file 04/06/2023 Employment Answer Date Recorded Do you want help finding or keeping work or a paola b? Not on file 04/06/2023 Disabilities Answer Date Recorded Concentrating, Remembering, or Making Decisions Difficulty Not on file 04/06/2023 Doing Errands Independently Difficulty Not on fi le 04/06/2023 Education Answer Date Recorded Help with school or training? Not on file Preferred Language Not on file 04/06/2023 Sex and Gender Information Value Date Recorded Sex Assigned at Not on file Legal Sex Male 11:22 AM EDT Gender Identity Not on file Sexual Orientation Not on file Plan of Treatment Health Maintenance Due Date Last Done Comments ANNUAL PHYSICAL 1955 HEPATITIS C SCREENING 1955 TDAP/TD VACCINES (1 - Tdap) 09/09/1975 COLOGUARD 2001 COLON CANCER SCREENING 5 YEAR SIGMOIDOSCOPY 2001 COLONOSCOPY 2001 [address] CANCER SCREENING 2001 CT COLONOGRAPHY 2001 FECAL OCCULT BLOOD TEST 2001 FIT Testing (1 year) 2001 Pneumococcal Vaccine 50+ (1 of 1 - PCV) 2006 ZOSTER VACCINE (1 of 2) 2006 AAA SCREEN ONCE 2021 COVID-19 Vaccine ( - season) 2024 INFLUENZA VACCINE 03/29/2025 Care Teams Network Lead Relationship Specialty [place] [address] [place] [address] PCP - General 06/19/15
--- OUTSIDE RECORDS SUMMARY | 2025-02-13 16:17 | XMS_ITS | Clinical Summary ---
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 Name Role Phone Unavailable Primary Care Provider Unavailabl e Social History Tobacco Use Types Packs/Day Years Used Date Smoking Tobacco: Never Assessed Sex and Gender Information Value Date Recorded Sex Assigned at Not on file Legal Sex Male 8:29 PM EDT Gender Identity Not on file Sexual Orientation Not on file Last Filed Vital Signs Vital Sign Reading Time Taken Comments Blood Pressure 125/69 12/11/2022 11:16 AM EDT Pulse 62 12/11/2022 11:16 AM EDT Temperature - - Respiratory Rate - - Oxygen Saturation - - Inhaled Oxygen Concentration - - Weight 121 kg (266 lb) 12/11/2022 11:16 AM EDT Height 177.8 cm (5' 10 ) 12/11/2022 11:16 AM EDT Body Mass Index 38.17 12/11/2022 11:16 AM EDT Plan of Treatment Health Maintenance Due Date Last Done Comments [facility]-Depression Screening 1956 [facility]-Hepatitis C Screening 1956 [facility]-Medicare Annual Wellness (AWV) 1956 [facility]-Infant/Child/Adol SDOH Screenings 1956 [facility]-Obesity Intervention 1962 [facility]- SDOH Screenings 1974 [facility]-Adult SDOH Screenings 1974 [facility]-DTaP,Tdap,and Td Vaccines (1 - Tdap) 09/09/1975 CT Colonography 2001 Colonoscopy 2001 FIT-DNA 2001 FIT 2001 FOBT 2001 Sigmoidoscopy 2001 [facility]-Colorectal Cancer Screening 2001 [facility]-Pneumococcal Vaccine: 50+ Years (1 of 1 - PCV) 2006 [facility]-Zoster Vaccines (1 of 2) 2006 ZTP-[id number]-33 Vaccine ( - season) 2024 01/27/2022, 04/08/2021, 09/22/2020, Additional history exists [facility]-Influenza Vaccine (#1) 02/27/202506/06, 04/27/2020, 04/06/2019, Additional history exists [facility]-RSV Vaccine: 60+ Years or (1 - 1-dose 75+ series) 09/09/2031 HPV Vaccines Aged Out No longer eligi ble based on patient's age to complete this topic [facility]-HIB Vaccines Aged Out No longer e ligible based on patient's age to complete this topic [facility]-Hepatitis A Vaccines Aged Out No longer eligible based on patient's age to complete this topic [facility]-IPV Vaccines Aged Out No longer e ligible based on patient's age to complete this topic [facility]-Rotavirus Vaccines Aged Out No lo nger eligible based on patient's age to complete this topic Insurance [facility]
--- NOTE | 2025-02-13 16:20 | XR_ITS ---
FINAL REPORT CLINICAL HISTORY: ACUTE SHOULDER PAIN limited rom COMPARISON: None FINDINGS: RIGHT SHOULDER Three views demonstrate no acute fracture or dislocation. There are mild hypertrophic changes of the glenohumeral joint. The acromioclavicular joint is intact. The soft tissues are unremarkable. IMPRESSION: Mild osteoarthritis without acute process. Reviewed, Interpreted and Dictated by Alex Delacruz MD Transcribed by Saumya Morgan Authenticated and [facility]
== END 2025-02-13 23:59 | disposition home or self-care (01) ==
LOC: RAD 16:15
PROVIDERS: PCP Nurse Practitioner Family; Visit Provider Nurse Practitioner Gerontology
DX: M19.011 Primary osteoarthritis, right shoulder (principal)
CPT/HCPCS: 73030